=== PATIENT | male | born 1950 | race Caucasian/White ===

== ENCOUNTER 2016-10-09 13:52 | Outpatient (CLI) | payer MEDICARE, OTHER | END 2016-10-09 13:53 | disposition home or self-care (01) | DX: R53.83 Other fatigue (principal); R10.9 Unspecified abdominal pain ==

== ENCOUNTER 2017-09-01 08:21 | Outpatient (CLI) | payer MEDICARE, OTHER ==
--- NOTE | 2017-09-01 10:55 | Ultrasound Report ---
SCROTAL ULTRASOUND: 09/01/2017 CLINICAL HISTORY: Pain right testicle. TECHNIQUE: Real-time sonographic vascular imaging was performed by the superintendent meter tests through the scrotu m utilizing both color-flow and Doppler spectral analysis. Multiple insurance verification representative static images wer e saved for review. COMPARISON: None. FINDINGS: RIGHT TESTICLE: 4.2 x 2.2 x 3.5 cm, normal echotexture and blood flow. No hydrocele or varicocele. RIGHT EPIDIDYMIS: 1.2 x 0.7 x 1.6 cm, normal echotexture and blood flow. Right epididymal head cyst o f 4 x 3 x 3 mm. LEFT TESTICLE: 4.1 x 2 x 2.9 cm, normal echotexture and blood flow. No hydrocele or varicocele. LEFT EPIDIDYMIS: 0.9 x 0.8 x 1 cm, normal echotexture and blood flow. Left epididymal head cyst of 8 x 6 x 5 mm. HERNIA: None seen on either side. IMPRESSION: BILATERAL SIMPLE EPIDIDYMAL HEAD CYSTS. OTHERWISE, NEGATIVE SCROTAL ULTRASOUND. JOB #: [id number] EXT JOB #:[id number]
== END 2017-09-01 08:22 | disposition home or self-care (01) ==
LOC: DI 08:21
PROVIDERS: ATTEND Nurse Practitioner Family
DX: N50.3 Cyst of epididymis (principal)
CPT/HCPCS: 76870

== ENCOUNTER 2017-09-11 08:23 | Outpatient (CLI) | payer MEDICARE, OTHER ==
--- NOTE | 2017-09-15 15:11 | Ultrasound Report ---
EXAM: Complete abdominal ultrasound 09/11/2017. CLINICAL INDICATION: Right-sided pain. TECHNIQUE: Real time scanning was performed, with home office representative static images obtained. FINDINGS: The liver measures 12.7 cm. Hepatic echogenicity is increased, compatible with fatty infiltration. No focal parenchymal lesion or intrahepatic biliary dilatation is appreciated. The common bile duct measures 4 mm. The gallbladder is normal. The visualized pancreas is unremarkable. The kidneys are normal, with the right measuring 10.0 cm and the left measuring 10.2 cm. The spleen measures 8.8 cm, and demonstrates normal echotexture. The abdominal aorta is normal in caliber. The inferior vena cava is unremarkable. No free fluid is present. IMPRESSION: Likely fatty infiltration of the liver. No evidence of cholelithiasis or biliary dilatation. No hydronephrosis. TD: 09/11/2017 19:35 MTDD
== END 2017-09-11 08:24 | disposition home or self-care (01) ==
LOC: DI 08:23
PROVIDERS: ATTEND Nurse Practitioner Family
DX: N50.89 Other specified disorders of the male genital organs (principal)
CPT/HCPCS: 76700

== ENCOUNTER 2017-09-25 13:08 | Outpatient (CLI) | payer MEDICARE, OTHER ==
[2017-09-25] MEDS ORDERED: IOPAMIDOL-300 50 ML VIAL ONE (13:13)
[2017-09-25] MEDS ORDERED: IOPAMIDOL-300 100 ML VIAL ONE (13:13)
[2017-09-25] MEDS ORDERED: IOPAMIDOL-300 100 ML VIAL IVP ONE (14:38)
[2017-09-25] MEDS ORDERED: IOPAMIDOL-300 50 ML VIAL PO ONE (14:38)
--- NOTE | 2017-09-26 13:44 | CT Report ---
DATE OF SERVICE: 09/25/2017 CT ABDOMEN AND PELVIS WITH CONTRAST: 09/25/2017 CLINICAL INDICATION: Lower abdominal pain. COMPARISON: Ultrasound 09/11/2017. Axial CT images of the abdomen and pelvis were obtained with 100 mL Isovue 300 intravenously as well as oral contrast. In accordance with CT protocol optimization, one or more of the following dose reduction techniques w ere utilized for this exam: Automated exposure control, adjustment of mA and/or KV based on patient size , or use of iterative reconstructive technique. Limited evaluation of the lung bases is unremarkable. ABDOMEN: The liver, spleen, pancreas, kidneys, and adrenal glands are unremarkable. The gallbladder is not dilated. No bowel dilatation, free gas, or free fluid is present. No abdominal adenopathy is seen. PELVIS: Sigmoid diverticulosis is present, without CT evidence of diverticulitis. There is a small right inguinal hernia present, containing fat, without evidence of bowel herniation. The appendix is seen in the right lower quadrant, and is normal in caliber. Osseous structures demonstrate degenerative changes. IMPRESSION: Small right inguinal hernia, containing fat, without evidence of bowel herniation. Diverticulosis without CT evidence of diverticulitis. TD: 09/25/2017 20:27
== END 2017-09-25 13:09 | disposition home or self-care (01) ==
LOC: DI 13:08
PROVIDERS: ATTEND Registered Nurse
DX: K40.90 Unilateral inguinal hernia, without obstruction or gangrene, not specified as recurrent (principal); K57.30 Diverticulosis of large intestine without perforation or abscess without bleeding
CPT/HCPCS: 74177; Q9967

== ENCOUNTER 2017-11-14 08:45 | Day surgery (SDC) | payer MEDICARE, OTHER ==
[2017-11-14] MEDS ORDERED: ceFAZolin 2 GM/50 ML 2 GM/50 ML BAG IV ONE (09:01)
[2017-11-14] MEDS ORDERED: LACTATED RINGERS 1,000 ML IV ONE ×2 (09:26→10:12)
[2017-11-14] MEDS ORDERED: MIDAZOLAM 2 MG/2 ML VIAL IVP ONE (10:00)
[2017-11-14] MEDS ORDERED: KETAMINE 500 MG/10 ML VIAL IVP ONE (10:00)
[2017-11-14] MEDS ORDERED: LIDOCAINE-MPF 2% 5 ML VIAL IM ONE (10:00)
[2017-11-14] MEDS ORDERED: PROPOFOL 200 MG/20 ML VIAL IVP ONE (10:00)
[2017-11-14] MEDS ORDERED: ONDANSETRON 4 MG/2 ML VIAL IVP ONE (10:00)
[2017-11-14] MEDS ORDERED: fentaNYL 100 MCG/2 ML VIAL IVP ONE (10:00)
[2017-11-14] MEDS ORDERED: BUPIVACAINE 0.25% PF 30 ML VIAL SUBQ ONE ×2 (10:02)
[2017-11-14] MEDS ORDERED: LIDOCAINE 1%-EPI 1:100000 20 ML MDV SUBQ ONE ×2 (10:02)
[2017-11-14] MEDS ORDERED: ACETAMINOPHEN 1,000 MG/100 ML 100 ML IV ONE (11:16)
--- NOTE | 2017-11-14 11:35 | ONCOLOGY / HEMATOLOGY ---
DATE OF SERVICE: 11/14/2017 Physician: John De Jesus MD PREOPERATIVE DIAGNOSIS: Right inguinal hernia. POSTOPERATIVE DIAGNOSIS: Right inguinal hernia. NAME OF PROCEDURE: Right long inguinal hernia repair. SURGEON: John De Jesus MD ANESTHESIA: MAC. INDICATIONS FOR PROCEDURE: The patient is a 67-year-old male who presents with pain in the right groin. On physical exam, he had a reducible right inguinal hernia. FINDINGS AT SURGERY: The patient had moderate sized indirect right inguinal hernia being present. It was repaired with ProGrip mesh. PROCEDURE: After informed consent was obtained, the patient was taken to the operating room, placed in supine position. MAC anesthesia was administered. The patient's right groin was then prepped and draped in the usual sterile fashion. The skin overlying the inguinal canal was then injected with local anesthesia. A transverse incision was made in the skin and carried down to the fascial layer using electrocautery. The external oblique fascial layer was then incised, opening up the inguinal canal. [place] drain was then placed around the cord structures at the pubic tubercle. The ilioinguinal and iliohypogastric nerves were identified and preserved. The patient did not have any significant weakness in the floor of his inguinal canal. The cremasteric muscles were then split and an indirect inguinal hernia sac moderate in size was then identified. It was then dissected free from the cord structures. A pursestring suture was then placed around the base with the tip of the sac then being inverted. The suture was then tied with the sac staying intra-abdominally. Next, the ProGrip mesh was then placed into the inguinal canal and wrapped around the cord structures, creating a new internal inguinal ring without any constriction on the cord structures. The mesh covered the pubic tubercle well. The mesh was then secured to the tissue over the pubic bone using 3-0 Vicryl suture. With the mesh in good position, the external oblique fascial layer was then closed using running #3-0 Vicryl sutures. Subcutaneous tissue was closed using 3-0 Vicryl suture. Skin incision was closed using 4-0 Monocryl subcuticular stitch. Dermabond was then applied. The patient was then awakened and taken from the procedure room in stable condition. ESTIMATED BLOOD LOSS: Less than 5 mL COMPLICATIONS: None. CONDITION OF THE PATIENT AT THEN END OF THE PROCEDURE: Stable. SPECIMENS: None. DRAINS AND PACKS: None. CLASSIFICATION OF WOUND: Clean. TD: 11/14/2017 11:34
[2017-11-14] MEDS ORDERED: HYDROcod/ACETAM 5/325 MG TABLET ONE (12:03)
[2017-11-14 12:07] VITALS: BP 160/84
== END 2017-11-14 08:46 | disposition home or self-care (01) ==
LOC: SDS 08:45
PROVIDERS: ATTEND Surgery
PROC: 0YU50JZ Supplement Right Inguinal Region with Synthetic Substitute, Open Approach (ICD-10-PCS; principal; 2017-11-14 10:00)
DX: K40.90 Unilateral inguinal hernia, without obstruction or gangrene, not specified as recurrent (principal)
CPT/HCPCS: 49505; A9270; C1781; J0131; J0690; J7120

== ENCOUNTER 2019-09-17 13:01 | Outpatient (CLI) | payer MEDICARE, OTHER ==
--- NOTE | 2019-09-18 09:36 | XRAY Report ---
Reason: PAIN IN LT KNEE Procedure Date: 09/17/2019 Accession Number: [id number] / [id number] Procedure: XRS - Knee 3 View LT CPT Code: Final Report FULL RESULT: EXAM: LEFT KNEE RADIOGRAPHY EXAM DATE: 09/17/2019 01:13 PM HISTORY: PAIN IN LT KNEE COMPARISON: None TECHNIQUE: AP, lateral and Merchant, 3 views including weightbearing FINDINGS: No fracture, lytic or sclerotic bone lesion. No arthritis. No joint effusion. Normal soft tissues. IMPRESSION: Normal knee radiography. RADIA
== END 2019-09-17 13:02 | disposition home or self-care (01) ==
LOC: DI.S 13:01
PROVIDERS: ATTEND Registered Nurse
DX: M25.562 Pain in left knee (principal)

== ENCOUNTER 2019-12-16 10:09 | Outpatient (CLI) | payer MEDICARE, OTHER ==
--- NOTE | 2019-12-16 12:13 | MRI Report ---
Reason: RESTING TREMOR, PARKINSONISM Procedure Date: 12/16/2019 Accession Number: [id number] / [id number] Procedure: MRI - Brain W/O CPT Code: Final Report FULL RESULT: EXAM: MRI BRAIN WITHOUT CONTRAST EXAM DATE: 12/16/2019 11:21 AM. CLINICAL HISTORY: 69-year-old man with resting tremor and parkinsonism. COMPARISON: None. TECHNIQUE: Multiplanar, multisequence T1-weighted and fluid-sensitive MR sequences of the brain were performed. Sequences optimized for routine evaluation. Other: None. IV Contrast: None. FINDINGS: Parenchyma: No evidence of acute infarct on diffusion weighted sequence. Parenchyma demonstrates moderate burden of nonspecific FLAIR hyperintensities in the deep cerebral and periventricular white matter, most consistent with sequelae of chronic small vessel ischemic disease and a common finding in this age group. Basal ganglia are normal in appearance. No evidence of prior hemorrhage on susceptibility weighted sequence. Pituitary: Unremarkable. Ventricles and Extra-axial Spaces: The ventricles are symmetric but moderately enlarged, most consistent with central cerebral volume loss at the upper limits of normal for age. Extra-axial spaces are unremarkable. Orbits: Unremarkable. Sinuses: Scattered mucosal thickening is present in the paranasal sinuses, greatest in the ethmoid sinuses bilaterally. Mastoid air cells are clear. Major Vascular Flow Voids: Intact. IMPRESSION: 1. No acute intracranial abnormality. Specifically, no evidence of acute infarct, hemorrhage, or mass lesion. 2. Moderate white matter changes, most consistent with sequelae of chronic small vessel ischemic disease and a common finding in this age group. RADIA
== END 2019-12-16 10:10 | disposition home or self-care (01) ==
LOC: DI 10:09
PROVIDERS: ATTEND Psychiatry & Neurology Neurology
DX: G20 Parkinson's disease (principal)
CPT/HCPCS: 70551

== ENCOUNTER 2020-01-01 10:46 | Outpatient (CLI) | payer MEDICARE, OTHER ==
[2020-01-01 11:12] LABS: CREATININE 0.9 mg/dL (0.6-1.2)
[2020-01-01] MEDS ORDERED: IOVERSOL 320 100 ML VIAL IVP ONE ×2 (11:34→13:04)
[2020-01-01] MEDS ORDERED: IOVERSOL 320 50 ML VIAL ONE (11:34)
[2020-01-01] MEDS ORDERED: IOVERSOL 320 50 ML VIAL PO ONE (13:04)
--- NOTE | 2020-01-01 16:10 | CT Report ---
Reason: LLQ PAIN Procedure Date: 01/01/2020 Accession Number: [id number] / [id number] Procedure: CT - Abdomen/Pelvis W CPT Code: Final Report FULL RESULT: EXAM: CT ABDOMEN AND PELVIS EXAM DATE: 01/01/2020 12:57 PM. CLINICAL HISTORY: Left lower quadrant pain. COMPARISONS: 09/17/2017 CT abdomen and pelvis. TECHNIQUE: Routine helical CT imaging was performed through the abdomen and pelvis. IV contrast: 100 mL Optiray 320. Enteric contrast: Yes. Reconstructions: Coronal and sagittal. In accordance with CT protocol optimization, one or more of the following dose reduction techniques were utilized for this exam: automated exposure control, adjustment of mA and/or KV based on patient size, or use of iterative reconstructive technique. FINDINGS: Lung Bases: Unremarkable. Liver: Normal. No masses. Gallbladder/Bile Ducts: Unremarkable. Spleen: Normal. Pancreas: Fatty infiltration of the pancreas. No masses or cysts. No pancreatic ductal dilatation. Adrenal Glands: Normal. Kidneys: Normal. No masses or hydronephrosis. Peritoneal Cavity/Bowel: Sigmoid diverticulosis. No pericolonic inflammatory changes. A loop of the proximal sigmoid colon extends into a left inguinal hernia. Moderate amount of stool within the colon. No evidence of obstruction or strangulation. Asymmetric wall thickening of the mid sigmoid (Series 5 image 23 and series 3 image 63 through 67). Small bowel is normal in caliber and wall thickness. The appendix is well visualized and normal. Pelvic Organs: Normal. The bladder and visualized pelvic organs are within normal limits. Vasculature: No aneurysms or other significant abnormality. Bones: No significant abnormality. Other: None. IMPRESSION: 1. Sigmoid diverticulosis without evidence of acute diverticulitis. 2. Left inguinal hernia contains a loop of sigmoid colon. No adjacent inflammatory changes or wall thickening to suggest regulation. No upstream colonic or small bowel dilatation to suggest obstruction. 3. Possible asymmetric wall thickening within the mid to distal sigmoid colon. Correlation with colonoscopy is recommended on a nonemergent basis to exclude neoplasia. RADIA
== END 2020-01-01 10:47 | disposition home or self-care (01) ==
LOC: LAB 10:46
PROVIDERS: ATTEND Registered Nurse
DX: K57.30 Diverticulosis of large intestine without perforation or abscess without bleeding (principal); K40.90 Unilateral inguinal hernia, without obstruction or gangrene, not specified as recurrent; R10.32 Left lower quadrant pain
CPT/HCPCS: 36415; 74177; 82565; Q9967

== ENCOUNTER 2020-03-14 15:57 | Outpatient (CLI) | payer MEDICARE, OTHER ==
[2020-03-14] MEDS ORDERED: IOVERSOL 320 100 ML VIAL IVP ONE ×2 (16:07→17:14)
[2020-03-14 16:45] LABS: CREATININE 0.8 mg/dL (0.6-1.2)
--- NOTE | 2020-03-14 17:44 | CT Report ---
PROCEDURE: CHEST W INDICATIONS: COLON CANCER CONTRAST: IV CONTRAST: Optiray 320 ml: 100 PO CONTRAST: *NO PO CONTRAST TECHNIQUE: After the administration of intravenous contrast, 5 mm thick sections acquired from the pulmonary api marquis to the posterior costophrenic angles. 7 mm thick coronal MIP reformats were acquired. For radia tion dose reduction, the following was used: automated exposure control, adjustment of mA and/or kV according to patient size. COMPARISON: CT abdomen pelvis 01/01/2020 FINDINGS: Image quality: Excellent. Lungs and pleura: No acute air space opacities. No pleural effusions or pneumothorax. Central and peripheral airways are patent and normal in caliber. Mediastinum: Heart size is normal. No pericardial effusion. No mediastinal or hilar adenopathy by size criteria. Thoracic aorta and central pulmonary arteries are normal in size. Esophagus is ying l in caliber. No hiatal hernia. Bones and chest wall: No suspicious bony lesions. No vertebral body compression fractures. No axil byron or supraclavicular adenopathy by size criteria. Thyroid gland is unremarkable. Abdomen: Partially visualized enlarged periaortic lymph node nodes. Otherwise, visualized upper abdom inal solid organs appear normal. Upper abdominal bowel loops are normal in caliber. IMPRESSION: 1. No evidence of pulmonary metastatic disease. 2. Partially visualized periaortic adenopathy. Reviewed by: Irena Amaya MD on 03/14/2020 5:43 PM PDT Approved by: Irena Amaya MD on 03/14/2020 5:43 PM PDT Station ID: [id number]
== END 2020-03-14 15:58 | disposition home or self-care (01) ==
LOC: LAB 15:57
PROVIDERS: ATTEND Internal Medicine Gastroenterology
DX: R59.0 Localized enlarged lymph nodes (principal); C18.7 Malignant neoplasm of sigmoid colon
CPT/HCPCS: 36415; 71260; 82565; 84520; Q9967

== ENCOUNTER 2020-06-09 16:46 | Outpatient (CLI) | payer MEDICARE, OTHER ==
[2020-06-09] MEDS ORDERED: GADOBUTROL 10 MMOL/10 ML VIAL ONE (18:23)
[2020-06-09] MEDS ORDERED: GADOBUTROL 10 MMOL/10 ML VIAL IVP ONE (18:27)
--- NOTE | 2020-06-12 11:57 | MRI Report ---
PROCEDURE: Brain W/WO INDICATIONS: MALIGNANT NEOPLASM OF COLON CONTRAST: IV CONTRAST: Gadavist ml: 8 TECHNIQUE: Noncontrast axial T1 spin echo, axial T2 fast spin echo, sagittal and axial FLAIR, coronal T2 fast sp in echo, axial gradient echo, axial diffusion and ADC through the brain. After the administration of contrast, axial and coronal T1 spin echo with fat saturation through the brain. COMPARISON: MRI examination dated 12.16.19. FINDINGS: Image quality: Excellent. CSF spaces: Basal cisterns are patent. No extra-axial fluid collections. Ventricles are normal in size and shape. Brain: No midline shift. No intracranial bleeds or masses. No abnormal intracranial enhancement. There is cerebral volume loss for age. There is periventricular white matter chronic small vessel is chemic change. The brainstem appears normal. Diffusion-weighted images demonstrate no acute ischemi c insults. No chronic ischemic insults. Normal intravascular flow voids are present. Skull and face: Calvarial marrow is normal in signal. Orbits appear normal. Sinuses: Sinuses and mastoids appear clear. IMPRESSION: 1. Volume loss and small vessel ischemic disease. 2. No acute process. No recent infarct. 3. No evidence of metastatic disease. Reviewed by: Edwin Rodriguez MD on 06/12/2020 11:56 AM PDT Approved by: Edwin Rodriguez MD on 06/12/2020 11:56 AM PDT Station ID: [id number]
== END 2020-06-09 16:47 | disposition home or self-care (01) ==
LOC: DI 16:46
PROVIDERS: ATTEND Psychiatry & Neurology Neurology
DX: C18.9 Malignant neoplasm of colon, unspecified (principal); R41.3 Other amnesia; Z13.89 Encounter for screening for other disorder
CPT/HCPCS: 70553; A9585

== ENCOUNTER 2020-12-14 14:26 | Outpatient (CLI) | payer MEDICARE, OTHER | END 2020-12-14 14:27 | disposition home or self-care (01) | LOC: COV 14:26 | PROVIDERS: ATTEND Surgery | DX: Z01.812 Encounter for preprocedural laboratory examination (principal); K40.90 Unilateral inguinal hernia, without obstruction or gangrene, not specified as recurrent; Z20.822 Contact with and (suspected) exposure to COVID-19 ==

== ENCOUNTER 2020-12-18 08:57 | Day surgery (SDC) | payer MEDICARE, OTHER ==
[~2020-12-18 08:57] MED LIST: ceFAZolin 2 GM/50 ML 2 GM/50 ML BAG IV ONE
--- NOTE | 2020-12-18 09:36 | ANESTHESIA ---
Pre-Anesthesia VS, & Labs - Diagnosis left inguinal hernia - Procedure left Inguinal hernia repair, port removal Vital Signs: Temp Pulse Resp BP Pulse Ox 36.3 C L 90 20 139/84 H 99 12/18/20 09:22 12/18/20 09:22 12/18/20 09:22 12/18/20 09:22 12/18/20 09:22 Height: 5 ft 7 in Weight (kg): 70.7 kg Body Mass Index: 24.4 BMI Classification: Healthy weight - NPO >8 hours - Lab Results Lab results reviewed: Yes Home Medications and Allergies Latanoprost 0.005% Ophth Drops [Xalatan Ophth Drops] 1 drops OPTH QPM 11/04/17 Carbidopa/Levodopa 10/100 [Sinemet 10 mg/100 mg] 2 tab PO TID 04/19/20 Allergies/Adverse Reactions: Allergies Allergy/AdvReac Type Severity Reaction Status Date / Time prednisone Allergy Severe Anaphylaxis Verified 10/04/20 15:50 Anes History & Medical History - Anesthetic History Anesthesia Complications: reports: No previous complications Family history of Anesthesia Complications: Denies Family history of Malignant Hyperthermia: Denies - Medical History Cardiovascular: Pulmonary: reports: Shortness of breath Gastrointestinal: reports: GERD Urinary: reports: None Neuro: reports: Parkinson's Musculoskeletal: reports: None Endocrine/Autoimmune: reports: None Skin: reports: None Smoking Status: Never smoker - Surgical History General: reports: Bowel surgery Exam General: Alert, Oriented x3, Cooperative, No acute distress Dental: WNL Mouth Openin Fingerbreadth Neck Mobility: Normal Mallampati classification: II Respiratory: Lungs clear, Normal breath sounds, No respiratory distress, No accessory muscle use Cardiovascular: Regular rate, Normal S1, Normal S2, No murmurs Plan Anesthesia Type: General, MAC, Total IV Consent for Procedure(s) Verified and Reviewed: Yes Code Status: Attempt Resuscitation ASA classification: 3-Severe systemic disease Is this case an emergency?: No
[2020-12-18] MEDS ORDERED: ePHEDrine 50 MG/ML VIAL IVP PRN (09:44)
[2020-12-18] MEDS ORDERED: MORPHINE 2 MG/ML CARPUJECT IVP PRN (09:44)
[2020-12-18] MEDS ORDERED: NALOXONE 0.4 MG/ML VIAL IVP PRN (09:44)
[2020-12-18] MEDS ORDERED: METOCLOPRAMIDE 10 MG/2 ML VIAL IVP PRN (09:44)
[2020-12-18] MEDS ORDERED: fentaNYL 100 MCG/2 ML VIAL IVP PRN (09:44)
[2020-12-18] MEDS ORDERED: LACTATED RINGERS 1,000 ML IV ONE ×2 (09:44→11:19)
[2020-12-18] MEDS ORDERED: ONDANSETRON 4 MG/2 ML VIAL IVP PRN ×2 (09:44→11:18)
[2020-12-18] MEDS ORDERED: ATROPINE ABBOJECT 1 MG/10 ML SYRINGE IVP PRN (09:44)
[2020-12-18] MEDS ORDERED: HYDROmorphone 0.5 MG/0.5 ML SYRINGE IVP PRN (09:44)
[2020-12-18] MEDS ORDERED: LACTATED RINGERS 1,000 ML IV SCH (10:00)
[2020-12-18] MEDS ORDERED: LIDOCAINE 2%-EPI 1:100000 20 ML MDV ONE (10:04)
[2020-12-18] MEDS ORDERED: ceFAZolin 1 GM VIAL ONE (10:04)
[2020-12-18] MEDS ORDERED: BUPIVACAINE 0.5% PF 30 ML VIAL ONE (10:05)
[2020-12-18] MEDS ORDERED: LIDOCAINE-MPF 2% 5 ML VIAL ONE (10:17)
[2020-12-18] MEDS ORDERED: fentaNYL 100 MCG/2 ML VIAL ONE (10:17)
[2020-12-18] MEDS ORDERED: ONDANSETRON 4 MG/2 ML VIAL ONE (10:17)
[2020-12-18] MEDS ORDERED: DEXAMETHASONE 4 MG/ML VIAL ONE (10:17)
[2020-12-18] MEDS ORDERED: LIDOCAINE 2%-EPI 1:100000 20 ML MDV SUBQ ONE (10:36)
[2020-12-18] MEDS ORDERED: BUPIVACAINE 0.5% PF 30 ML VIAL INFIL ONE (10:36)
[2020-12-18] MEDS ORDERED: ceFAZolin 1 GM VIAL IR ONE (10:55)
[2020-12-18] MEDS ORDERED: ePHEDrine 50 MG/ML VIAL IVP ONE (11:08)
--- NOTE | 2020-12-18 11:15 | OPERATIVE REPORT ---
Operative Report - General Procedure Date: 12/18/20 Planned Procedure: Left inguinal hernia repair, Right subclavian port removal Pre-Op Diagnosis: Large and symptomatic left inguinal hernia, Chemotherapy completed Procedure Performed: Left inguinal hernia repair, Right subclavian port removal Post Op Diagnosis: Large and symptomatic left inguinal hernia, Chemotherapy completed - Procedure Note Primary Surgeon: Gabi Anesthesia Provider: CANDY Soliz Anesthesia Technique: General LMA, Local Pathology: None Estimated Blood Loss (mL): 15 Findings: Large indirect left inguinal hernia Subclavian port in good repair Complications: None apparent - Other Other Information/Narrative: After obtaining informed consent, the patient is brought to the operating room and placed in the supine position on the operating table. Following successful induction of general endotracheal anesthesia, appropriate padding of all bony prominences, and placement of appropriate monitors, the abdomen was prepped and draped in the standard surgical fashion. A timeout was held per scope protocol. All elements of the surgical safety checklist were followed before, during, and after the procedure. We began the procedure by infiltrating a mixture of local anesthetics medial to the anterior superior iliac spine on the left. This was done to create an ileal inguinal nerve block. We then selected a site for an incision in the left lower quadrant just superior and lateral to the pubic tubercle. This area was anesthetized with additional local anesthetic and an incision was created here.The incision was carried down through the skin and subcutaneous tissue to reveal the fascia of the external oblique aponeurosis. Retractor was placed and the aponeurosis was opened in direction of its fibers. The ilioinguinal nerve was immediately identified. We continued by identifying the spermatic cord and gently encircling it with a [place] drain. The hernia sac was carefully dissected free from the cord structures and was noted to be in the inferior medial position. The sac was in the indirect position. We carefully dissected the spermatic cord from the sac. The hernia sac was then placed back into the abdominal cavity. We elected to repair the hernia with a large Prolene hernia system mesh implant. This was dipped in Ancef containing solution and then deployed into the defect. The posterior leaflet was straightened and flattened in the preperitoneal space. The anterior leaflet was then nicked medially to provide a place for the spermatic cord and then closed with a Vicryl suture. The more inferior aspect was then sewn to Juan David's ligament medially. Laterally it was tucked under the external beak aponeurosis. The wound was checked for hemostasis and irrigated with warm saline solution. It was aspirated free of all fluid and particulate matter. The extra oblique aponeurosis was then closed with a running locking Vicryl suture Melquiades's fascia was closed with Vicryl suture and Monocryl stitches were placed in the skin. We now turned our attention to the right subclavian port. A mixture of local anesthetics was infiltrated in the tissue in and around the port site. The existing incision was repeated and carried through the skin to reveal the port below. The port was carefully dissected free from the subcutaneous tissue and chest wall sharply. It was delivered into the field and then gently removed to include the tubing. The entire device and tubing was removed in a single use. The wound was checked for hemostasis. It was closed in 2 layers with Vicryl and Monocryl sutures. All sponge, needle, and instrument counts were correct at the conclusion of the case. The patient was allowed awaken from anesthesia without difficulty and taken to the postanesthesia care unit in good condition.
[2020-12-18] MEDS ORDERED: IBUPROFEN 600 MG TABLET PO PRN (11:18)
[2020-12-18] MEDS ORDERED: oxyCODONE 5 MG TABLET PO PRN (11:18)
[2020-12-18] MEDS ORDERED: ACETAMINOPHEN 325 MG TABLET PO PRN (11:18)
--- NOTE | 2020-12-18 12:03 | ANESTHESIA POST OP EVALUATION ---
Anesthesia Post Eval - Post Anesthesia Eval Vitals: Last Vital Signs Temp 36.7 C 12/18/20 11:53 Pulse 94 12/18/20 11:53 Resp 16 12/18/20 11:53 BP 125/78 12/18/20 11:53 Pulse Ox 99 12/18/20 11:53 CV Function Including HR & BP: positive: Stable Pain Control: positive: Satisfactory Nausea & Vomiting: positive: Negative Mental Status: positive: Patient Participates Respiratory Status: Airway Patent Hydration Status: Satisfactory Anesthesia Complications: positive: None
[2020-12-18] MEDS ORDERED: IBUPROFEN 600 MG TABLET PO ONE (12:29)
[2020-12-18] MEDS ORDERED: ACETAMINOPHEN 325 MG TABLET PO ONE (12:29)
[2020-12-18 14:16] VITALS: BP 120/77
== END 2020-12-18 08:58 | disposition home or self-care (01) ==
LOC: SDS 08:57
PROVIDERS: ATTEND Surgery
DX: K40.90 Unilateral inguinal hernia, without obstruction or gangrene, not specified as recurrent (principal); Z45.2 Encounter for adjustment and management of vascular access device; C18.9 Malignant neoplasm of colon, unspecified; Z92.21 Personal history of antineoplastic chemotherapy
CPT/HCPCS: 36590; 49505; A9270; C1781; J0690; J7120

== ENCOUNTER 2021-01-31 12:10 | Outpatient (CLI) | payer MEDICARE, OTHER | END 2021-01-31 12:11 | disposition home or self-care (01) | LOC: LAB 12:10 | PROVIDERS: ATTEND Surgery | DX: Z53.9 Procedure and treatment not carried out, unspecified reason (principal); K40.90 Unilateral inguinal hernia, without obstruction or gangrene, not specified as recurrent; C18.9 Malignant neoplasm of colon, unspecified ==

== ENCOUNTER 2021-05-26 12:36 | Outpatient (CLI) | payer MEDICARE, OTHER | END 2021-05-26 23:59 | disposition EMS.NT | LOC: EMS 12:36 | DX: R42 Dizziness and giddiness (principal) ==

== ENCOUNTER 2021-05-26 13:46 | Emergency (ER) | payer MEDICARE, OTHER ==
[2021-05-26 14:02] VITALS: BP 148/80
--- NOTE | 2021-05-26 15:52 | ED Physician Documentation ---
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 For the last 4 days he has had intermittent spinning sensation. It started 1 night while getting out of bed to urinate. Since then he notices especially with position changes or transitioning from sitting to standing. It is much better with the right ear down. He is not dizzy on initial evaluation. No history of vertigo in the past. No headache. He has some generalized weakness but no focal neurologic symptoms. Review of Systems Constitutional: denies: Fever, Chills Ears: reports: Reviewed and negative Nose: reports: Reviewed and negative Throat: reports: Reviewed and negative Cardiac: reports: Reviewed and negative Respiratory: reports: Reviewed and negative PD PAST MEDICAL HISTORY - Past Medical History Cardiovascular: High cholesterol Respiratory: Shortness of breath, Other Neuro: Parkinson's Endocrine/Autoimmune: None GI: GERD : None HEENT: Other Psych: None Musculoskeletal: None Derm: None - Past Surgical History General: Other - Present Medications Home Medications: Ambulatory Orders Medication Instructions Recorded Confirmed Latanoprost 0.005% Ophth Drops 1 drops OPTH QPM 11/04/17 05/02/21 [Xalatan Ophth Drops] Carbidopa/Levodopa 10/100 [Sinemet 2 tab PO TID 04/19/20 05/02/21 10 mg/100 mg] ondansetron HCL [Zofran] 8 mg PO BID PRN #30 tablet 04/24/20 05/02/21 Ondansetron Odt [Zofran Odt] 4 mg TL Q6H PRN #10 tablet 12/18/20 05/02/21 traMADol [Ultram] 50 mg PO Q4H PRN #20 tablet 12/18/20 05/02/21 - Allergies Allergies/Adverse Reactions: Allergies Allergy/AdvReac Type Severity Reaction Status Date / Time prednisone Allergy Severe Anaphylaxis Verified 05/26/21 14:02 - Social History Smoking Status: Never smoker PD ED PE NORMAL - Vitals Vital signs reviewed: Yes - General General: Alert and oriented X 3, No acute distress - HEENT HEENT: PERRL, EOMI, Pharynx benign, Other (Tms appear normal, he does have c ataracts. 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 An Corin maneuver was done starting with the left ear down. After the Corin maneuver, he was still slightly symptomatic but it helped significantly. He declined medications. Departure - Departure Disposition: 01 Home, Self Care Clinical Impression: BPPV (benign paroxysmal positional vertigo) Qualifiers: Laterality: left Qualified Code(s): H81.12 - Benign paroxysmal vertigo, left ear Condition: Good Record reviewed to determine appropriate education?: Yes Instructions: Vertigo Paroxysmal Positional Comments: When you are symptomatic, continue to do the Corin maneuver. Since it helped you here I am convinced that we will continue to help and at some point we will have no vertigo left. Follow-up with your physician. Return for new or worsening symptoms.
== END 2021-05-26 16:03 | disposition home or self-care (01) ==
LOC: ED 13:46
DX: H81.12 Benign paroxysmal vertigo, left ear (principal); G20 Parkinson's disease
CPT/HCPCS: 99281; 99282

== ENCOUNTER 2021-08-18 03:26 | Outpatient (CLI) | payer MEDICARE, OTHER | END 2021-08-18 03:27 | disposition critical access hospital (66) | LOC: EMS 03:26 | DX: R61 Generalized hyperhidrosis (principal); R45.1 Restlessness and agitation; R11.0 Nausea | CPT/HCPCS: A0425; A0427 ==

== ENCOUNTER 2021-08-18 03:49 | Emergency (ER) | payer MEDICARE, OTHER ==
[2021-08-18] MEDS ORDERED: ACETAMINOPHEN 325 MG TABLET PO STA (03:58)
--- NOTE | 2021-08-18 04:01 | ED Physician Documentation ---
History of Present Illness - Stated complaint Stated Complaint: BACK PAIN/AGGITATION - History obtained from History obtained from: Patient, EMS - Additonal information Additional information: 71yM with pmh parkinsons and colon cancer p/w agitation and diaphoresis around 1:30am this morning. called ems and told them he had some home grown marijuana tonight. patient developed nausea since 1am that worsened en route to ED. patient is calm in the ED, AOX2 (person, place) but thinks it's 1969. He did know it is July. denies cp, soa, vomiting, fever, diarrhea, abd pain. does endorse midline thoracic back pain, sudden onset, sharp, worse with deep breathing. denies injury or prior back issues. Review of Systems Ten Systems: 10 systems reviewed and negative Constitutional: denies: Fever, Chills Cardiac: denies: Chest pain / pressure Respiratory: reports: Dyspnea PD PAST MEDICAL HISTORY - Past Medical History Cardiovascular: None Respiratory: Shortness of breath, Other Neuro: Parkinson's Endocrine/Autoimmune: None GI: Other : None HEENT: Chronic vision loss, Glaucoma Psych: None Musculoskeletal: Osteoarthritis Derm: None - Past Surgical History General: Other - Present Medications Home Medications: Ambulatory Orders Medication Instructions Recorded Confirmed Latanoprost 0.005% Ophth Drops 1 drops LEFTEYE QPM 11/04/17 07/24/21 [Xalatan Ophth Drops] Ascorbic Acid [Vitamin C] 1,000 mg PO DAILY 07/24/21 07/24/21 Carbidopa/Levodopa 25/100 [Sinemet 2 tab PO TID 07/24/21 07/24/21 25 mg/100 mg] Cholecalciferol [Vitamin D3] 50 mcg PO DAILY 07/24/21 07/24/21 Multivitamin 1 each PO DAILY 07/24/21 07/24/21 Vitamin E 1,000 unit PO DAILY 07/24/21 07/24/21 Zinc Gluconate [Zinc] 50 mg PO DAILY 07/24/21 07/24/21 Calcitonin [Fortical] 1 sprays MAXIMO DAILY 30 Days #1 08/18/21 bottle Naproxen 500 mg PO BID 15 Days #30 tab 08/18/21 - Allergies Allergies/Adverse Reactions: Allergies Allergy/AdvReac Type Severity Reaction Status Date / Time prednisone Allergy Severe Anaphylaxis Verified 08/18/21 04:11 - Social History Smoking Status: Never smoker PD ED PE NORMAL - Vitals Vital signs reviewed: Yes - General General: No acute distress, Well developed/nourished, Other (AOX2) - HEENT HEENT: Atraumatic, PERRL, EOMI - Neck Neck: Supple, no meningeal sign - Cardiac Cardiac: RRR - Respiratory Respiratory: No respiratory distress, Clear bilaterally - Abdomen Abdomen: Non tender, Non distended - Back Back: Other (midthoracic spine ttp) - Derm Derm: Normal color, Warm and dry - Extremities Extremities: No deformity - Neuro Neuro: No motor deficit, No sensory deficit - Psych Psych: Normal mood, Normal affect Results - Vitals Vitals: Vital Signs - 24 hr 08/18/21 08/18/21 08/18/21 03:57 03:58 06:04 Temperature 36.6 C 36.6 C Heart Rate 115 H 115 H 101 H Respiratory 16 16 24 Rate Blood Pressure 136/75 H 136/78 H 156/86 H O2 Saturation 93 94 94 08/18/21 08/18/21 07:39 09:17 Temperature 36.8 C 36.5 C Heart Rate 99 97 Respiratory 18 18 Rate Blood Pressure 150/86 H 142/79 H O2 Saturation 96 96 Oxygen O2 Source Room air - EKG (time done) 0436 Rate: Rate (enter#) (113) Rhythm: Sinus tachycardia Intervals: Normal [place] QRS: Normal (102) Ischemia: Other (no ischemic changes) - Labs Labs: Laboratory Tests 08/18/21 08/18/21 06:18 06:18 WBC 15.2 H RBC 4.42 L Hgb 13.2 L Hct 39.1 L MCV 88.5 MCH 29.9 MCHC 33.8 RDW 15.1 H Plt Count 174 MPV 9.0 Neut # (Auto) 12.9 H Lymph # (Auto) 0.7 L Gage # (Auto) 1.3 H Eos # (Auto) 0.0 Baso # (Auto) 0.0 Absolute Nucleated RBC 0.00 Nucleated RBC % 0.0 Sodium 136 Potassium 4.1 Chloride 99 L Carbon Dioxide 27 Anion Gap 10.0 BUN 24 H Creatinine 0.8 Estimated GFR (MDRD) 95 Glucose 128 H Calcium 9.1 Total Bilirubin 0.7 AST 34 ALT 11 Alkaline Phosphatase 47 Total Protein 7.3 Albumin 4.4 Globulin 2.9 Albumin/Globulin Ratio 1.5 Lipase 28 PD MEDICAL DECISION MAKING - ED course ED course: Collateral information obtained from who called EMS. She states that he woke her from sleep complaining of midline thoracic back pain sudden in onset and she states that he was "breathing funny" and agitated. She states that he was acting normal yesterday and did have marijuana and last night. No known injury however he did lift a heavy object and felt a twinge in his left chest a couple days ago. He has since recovered. patient endorsed to annie Myrick MD for further management and care. Departure - Departure Disposition: Home, Self Care Clinical Impression: Acute thoracic back pain Qualifiers: Back pain laterality: midline Qualified Code(s): M54.6 - Pain in thoracic spine Thoracic compression fracture Qualifiers: Encounter type: initial encounter Thoracic vertebra fracture level: T5 Qualified Code(s): S22.050A - Wedge compression fracture of T5-T6 vertebra, initial encounter for closed fracture Condition: Stable Instructions: ED Fx Comp Vertebral Follow-Up: Jenna Geronimo, CLINICAL LEADER [Primary Care Provider] - Prescriptions: Calcitonin [Fortical] 1 sprays MAXIMO DAILY 30 Days #1 bottle Naproxen 500 mg PO BID 15 Days #30 tab Comments: Your pain appears to be coming from a new compression fracture in the thoracic spine. 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 It does not appear to be impinging on the spinal cord area. Unfortunately, like other bone injuries elsewhere, it will take about a month for it to improve. This will be a gradual improvement with the worst pain in the first week or so. I would suggest regular use of Tylenol 500 mg 4 times a day. Combine with that an anti-inflammatory such as naproxen 500 mg twice a day with food. Calcitonin nasal spray is used to try to increase the rate of bone solidifying so it does not hurt as long. This will be administered as a spray daily in the nostril. That is the route that it absorbs into your system. Contact your primary care or return to the ER if you need stronger medication for pain. You have declined any opiate type medicines at this time. It may be that you need a short course of these over the first week or so to help with the pain. If you do, it can be prescribed by your primary care or back in the ER. We cannot phone it did unfortunately. Also contact your primary care to see if they would consult a commercial sales specialist to see if you are a candidate for vertebroplasty which is a surgical procedure to inject some hardener (glue) into the fracture area through the skin in order to solidify the fracture more promptly. There are criteria for at [place] not sure if you are she would be included and is typically done as an outpatient procedure within the first week or so of the fracture. Discharge Date/Time: 08/18/21 09:56
[2021-08-18] MEDS ORDERED: SODIUM CHLORIDE 0.9% 500 ML IV STA (04:21)
[2021-08-18] MEDS ORDERED: IOVERSOL 320 100 ML VIAL IVP ONE ×2 (04:36→07:13)
[2021-08-18] MEDS ORDERED: MORPHINE 2 MG/ML CARPUJECT IVP STA ×2 (04:42→05:45)
[2021-08-18 06:31] LABS: BASOPHILS % (AUTO) 0.3 %; HCT - HEMATOCRIT 39.1 % (42.0-52.0); HGB - HEMOGLOBIN 13.2 g/dL (14.0-18.0); LYMPHOCYTES # (AUTO) 0.7 10^3/uL (1.5-3.5); LYMPHOCYTES % (AUTO) 4.9 %; MEAN CORPUSCULAR HEMOGLOBIN 29.9 pg (27.0-31.0); MEAN CORPUSCULAR HGB CONC 33.8 g/dL (32.0-36.0); MEAN CORPUSCULAR VOLUME 88.5 fL (80.0-94.0); MONOCYTES # (AUTO) 1.3 10^3/uL (0.0-1.0); MONOCYTES % (AUTO) 8.8 %; NEUTROPHILS # (AUTO) 12.9 10^3/uL (1.5-6.6); PLT - PLATELET COUNT 174 10^3/uL (130-450); RED BLOOD COUNT 4.42 10^6/uL (4.70-6.10); RED CELL DISTRIBUTION WIDTH 15.1 % (12.0-15.0); WHITE BLOOD COUNT 15.2 x10^3/uL (4.8-10.8)
[2021-08-18 06:42] LABS: ALBUMIN 4.4 g/dL (3.2-5.5); ALBUMIN/GLOBULIN RATIO 1.5 (1.0-2.2); BILIRUBIN,TOTAL 0.7 mg/dL (0.2-1.0); CALCIUM 9.1 mg/dL (8.5-10.3); CREATININE 0.8 mg/dL (0.6-1.2); POTASSIUM 4.1 mmol/L (3.5-5.0); TOTAL PROTEIN 7.3 g/dL (6.7-8.2)
--- NOTE | 2021-08-18 08:17 | CT Report ---
PROCEDURE: ANGIO CHEST W/WO INDICATIONS: pleuritic upper back pain, nausea, hx colon cancer CONTRAST: IV CONTRAST: Optiray 320 ml: 80 PO CONTRAST: *NO PO CONTRAST TECHNIQUE: After the administration of intravenous contrast, 2 mm axial images were acquired from the pulmonary apices to the posterior costophrenic angles during the arterial phase. In addition, 1 mm lung kernel and 5 mm soft tissue kernel reconstructions were performed. 3-dimensional coronal oblique maximum int ensity projection (MIP) reformats, 8 mm axial MIP, and 5 mm coronal and sagittal MPR reformats were t hen performed through the thorax. For radiation dose reduction, the following was used: automated exp osure control, adjustment of mA and/or kV according to patient size. COMPARISON: 04/17/2021, 10/25/2020, 07/28/2020 FINDINGS: Image quality: Excellent. Pulmonary arteries: Pulmonary arteries are normal in size, and demonstrate no intraluminal filling d efects to suggest central pulmonary embolism. Lungs and pleura: Within the left upper lobe, there is a focal nodule seen, as on series 6 image 33 t hat measures 6 mm, which has clearly increased in size compared to the prior. Other prior report, a r ight lower lobe nodule described. There is a nodule seen on the current study within the inferior asp ect of the right upper lobe adjacent to the oblique fissure, as on series 6 image 154, which is not s ignificantly changed compared to the prior. No definite new nodules can be seen. Mild bronchial wall thickening can be seen inferiorly. Minimal dependent atelectasis is seen. No pleu ral effusions or pneumothorax. Central and peripheral airways are patent. Mediastinum: Heart size is normal, without pericardial effusion. No mediastinal or hilar adenopathy . Thoracic aorta is normal in caliber and enhancement. Esophagus is normal in caliber, without hiat al hernia. Bones and chest wall: No suspicious bony lesions. No displaced rib fractures are seen. There are fra ctures seen of T3 and T5, with approximately 30% loss of height anteriorly at T3 and approximately 40 % loss of height anteriorly at T4. These fractures are new compared to 04/17/2021. No axillary or supr aclavicular adenopathy. The thyroid is normal in size and there are no incidental findings. Abdomen: Visualized upper abdominal solid organs appear normal in the early arterial phase of enhanc ement. IMPRESSION: No definite pulmonary embolism can be seen. Within the left upper lobe, there is a nodule seen, which has increased in size compared to the prior , now measuring 6 mm. Please consider a 3-6 month follow-up noncontrast chest CT for further evaluati on. There are new compression deformities seen of T3 and T5, which were not present on the prior. Mild bronchial wall thickening can be seen inferiorly. Please consider a viral process. No focal infiltrates are seen, although mild dependent atelectasis can be seen. Note: No significant discrepancy from the preliminary report. Reviewed by: Kelton Maddox MD on 08/18/2021 7:15 AM [facility] Approved by: Kelton Maddox MD on 08/18/2021 7:15 AM [facility] Station ID: [id number]
[2021-08-18] MEDS ORDERED: KETOROLAC 30 MG/ML VIAL IVP STA (08:18)
[2021-08-18] MEDS ORDERED: HYDROmorphone 1 MG/ML CARPUJECT IVP STA (08:18)
--- NOTE | 2021-08-18 08:42 | ED Physician Documentation ---
ED Addendum - Addendum Addendum: 08/18/21 08:37The patient had abrupt pain during the night in the upper to mid thoracic area. He describes the location as "where a woman's bra strap would be". Basic blood tests are normal. The patient had a CT angio of the chest which did not show any vascular problems. There is a small nodule in the left upper lobe that is slightly increased from prior study with a recommendation for 6-month follow-up. There is some bronchial wall thickening with some opacity in the lower lobes bilaterally. However he denies any cough sore throat fevers or chills. The main finding on the CT was apparently new compression fractures at T3 and mainly T5. They were not present on a CT scan . The area of the T5 compression fracture correlates with his area of new pain that is sharp with movement and deep breathing. No apparent trauma right now. He states he did do some heavy lifting 2 days ago with slight soreness in the back. No obvious pathologic deformities noted in the spine. We can treat with anti-inflammatories and Tylenol. We can add calcitonin nasal spray as this has shown some benefit in compression fractures. I told the patient he may need some stronger pain medicines at times. He declined any opiates. I told him to follow-up with his primary care if he needed stronger pain medicines or return to the ER. He should also follow-up with his primary care with consideration of referral or consultation with spine surgery to see if the patient would be a candidate for vertebroplasty. Disposition: The patient is discharged home in stable condition Diagnoses: 1. Acute upper thoracic back pain 2. Acute vertebral compression fracture 3. Incidental nodule in the left upper lobe
[2021-08-18 09:18] VITALS: BP 142/79
== END 2021-08-18 09:56 | disposition home or self-care (01) ==
LOC: EDUNIT# → ED 03:49
DX: M48.54XA Collapsed vertebra, not elsewhere classified, thoracic region, initial encounter for fracture (principal)
CPT/HCPCS: 36415; 71275; 80053; 83690; 85025; 93005; 96374; 96375; 96376; 99284; A9270; J1170; Q9967

== ENCOUNTER 2021-09-17 13:58 | Outpatient (CLI) | payer MEDICARE, OTHER ==
--- NOTE | 2021-09-17 16:49 | DEXA Report ---
PROCEDURE: Dexa Spine and/or Hip INDICATIONS: OSTEOPOROSIS TECHNIQUE: Dual energy x-ray absorptiometry (DXA) was performed on a [employer] System. Regions measur ed are the AP Spine, femoral neck, and if needed forearm. COMPARISON: None. FINDINGS: Lumbar Spine: Bone Mineral Density 0.960 g/cm/cm,T score -2.2. Left Hip: Bone Mineral Density 0.717 g/cm/cm,T score -2.7. Left Femoral Neck: Bone Mineral Density 0.758 g/cm/cm, T score -2.4. (T score greater or equal to -1.0: NORMAL) (T score from -1.1 to -2.4: OSTEOPENIA) (T score less than or equal to -2.5 to: OSTEOPOROSIS) Impression: Osteoporosis Patients with diagnosis of osteoporosis or osteopenia should have regular bone mineral density assess ment. For those eligible for Medicare, routine testing is allowed once every 2 years. Testing frequ ency can be increased for patients who have rapidly progressing disease or for those who are receivin g medical therapy to restore bone mass. Reviewed by: Kumar Weathers MD on 09/17/2021 4:47 PM PST Approved by: Kumar Weathers MD on 09/17/2021 4:47 PM PST Station ID: [id number]
== END 2021-09-17 13:59 | disposition home or self-care (01) ==
LOC: DI 13:58
PROVIDERS: ATTEND Internal Medicine
DX: M81.0 Age-related osteoporosis without current pathological fracture (principal)

== ENCOUNTER 2021-10-03 09:11 | Outpatient (CLI) | payer MEDICARE, OTHER ==
--- NOTE | 2021-10-03 21:15 | Nuclear Medicine Report ---
PROCEDURE: Bone Whole Body INDICATIONS: COLON CA RADIOPHARMACEUTICAL: 24.0 mCi Tc-99m MDP IV. TECHNIQUE: Delayed whole-body scintigrams were obtained approximately 3-4 hours after intravenous injection of r adiotracer. Anterior and posterior views were acquired from vertex to feet. Additional left and rig ht oblique views of the skull were obtained. COMPARISON: CT chest 10/25/2020, 08/31/2021 FINDINGS: Physiologic uptake is noted within the kidneys bladder. There is increased uptake at the l evel of T11 and T6 as well as T4. It is noted on prior exam compression deformities are present at T4 and T6. In addition, there is a focus of increased uptake in the lateral left 11th rib. No abnormali ties identified on CT exam within this region. Mild increased uptake is noted within the knees as wel l as shoulders. IMPRESSION: 1. Increased uptake within the thoracic spine as above with the T4 and T6 areas corresponding to comp ression deformities on recent CT exam. 2. Focal uptake within the lateral left 11th rib without corresponding abnormality on CT. This could represent recent injury or metastatic disease. Rib series is recommended for further evaluation. Reviewed by: Irena Amaya MD on 10/03/2021 9:14 PM PST Approved by: Irena Amaya MD on 10/03/2021 9:14 PM PST Station ID: [id number]
== END 2021-10-03 09:12 | disposition home or self-care (01) ==
LOC: DI 09:11
PROVIDERS: ATTEND Internal Medicine
DX: C18.9 Malignant neoplasm of colon, unspecified (principal); Z79.899 Other long term (current) drug therapy; Z92.21 Personal history of antineoplastic chemotherapy; R93.7 Abnormal findings on diagnostic imaging of other parts of musculoskeletal system
CPT/HCPCS: 78306

== ENCOUNTER 2021-12-03 07:53 | Outpatient (CLI) | payer MEDICARE, OTHER ==
[2021-12-03] MEDS ORDERED: GADOBUTROL 7.5 MMOL/7.5 ML VIAL ONE (08:31)
[2021-12-03] MEDS ORDERED: GADOBUTROL 7.5 MMOL/7.5 ML VIAL IVP ONE (15:52)
--- NOTE | 2021-12-04 09:05 | MRI Report ---
PROCEDURE: Brain W/WO INDICATIONS: TRANSIENT ALTERATION OF AWARENESS, COLON CA CONTRAST: IV CONTRAST: Gadavist ml: 6.8 TECHNIQUE: Noncontrast axial T1 spin echo, axial T2 fast spin echo, sagittal and axial FLAIR, coronal T2 fast sp in echo, axial gradient echo, axial diffusion and ADC through the brain. After the administration of contrast, axial and coronal T1 spin echo with fat saturation through the brain. COMPARISON: 12/16/2019 MRI examination FINDINGS: Image quality: Excellent. CSF spaces: Basal cisterns are patent. No extra-axial fluid collections. Ventricles are normal in size and shape. Brain: No midline shift. No intracranial bleeds or masses. No abnormal intracranial enhancement. There is cerebral volume loss for age. There is periventricular white matter chronic small vessel is chemic change. The brainstem appears normal. Diffusion-weighted images demonstrate no acute ischemi c insults. No chronic ischemic insults. Normal intravascular flow voids are present. Skull and face: Calvarial marrow is normal in signal. Orbits appear normal. Sinuses: Sinuses and mastoids appear clear. IMPRESSION: 1. No evidence of metastatic disease. 2. No acute process. No recent infarct. 3. Mild volume loss and small vessel ischemic disease. Reviewed by: Edwin Rodriguez MD on 12/04/2021 9:04 AM [facility] Approved by: Edwin Rodriguez MD on 12/04/2021 9:04 AM PST Station ID: [id number]
--- NOTE | 2021-12-04 09:10 | MRI Report ---
PROCEDURE: Cervical Spine W/WO INDICATIONS: TRANSIENT ALTERATION OF AWARENESS, COLON CA CONTRAST: IV CONTRAST: Gadavist ml: 6.8 TECHNIQUE: Noncontrast sagittal T1 spin echo and T2 fast spin echo, sagittal STIR, sagittal PD fast spin echo, f oraminal oblique sagittal T2 fast spin echo, axial gradient echo or T2 fast spin echo through the cer vical spine. After the administration of contrast, sagittal and axial T1 spin echo with fat saturati on through the cervical spine. COMPARISON: Bone scan dated 10/03/2021 FINDINGS: Image quality: Excellent. Alignment and curvature: There is loss of normal cervical lordosis. There is minimal grade 1 retroli sthesis of C3 on C4, C4 on C5, and C5 on C6. Marrow: Marrow demonstrates normal overall signal. Minimal reactive signal throughout the endplates of the cervical and upper thoracic spine. Spinal cord: Visualized spinal cord is normal in size, without white matter lesions. No suspicious intramedullary enhancement. No cerebellar tonsillar herniation. Paraspinous soft tissues: No paravertebral masses or suspicious enhancement. C2-C3: Mild disc desiccation and diffuse disc bulge. Mild facet and uncovertebral hypertrophy. Mild canal stenosis. Mild bilateral foraminal stenosis C3-C4: Mild disc height loss and desiccation. Mild diffuse disc bulge. Congenital canal stenosis. M ild facet and uncovertebral hypertrophy bilaterally. Moderate canal stenosis. Mild bilateral foramina l stenosis. C4-C5: Congenital canal stenosis. Moderate disc desiccation. Mild disc height loss and diffuse disc bulge. Mild facet and uncovertebral hypertrophy. Moderate canal stenosis. Moderate bilateral foramina l stenosis. C5-C6: Congenital canal stenosis. Moderate disc desiccation. Mild disc height loss and diffuse disc bulge. Mild facet and uncovertebral hypertrophy bilaterally. Moderate canal stenosis. Moderate bilate ral foraminal stenosis. C6-C7: Congenital canal stenosis. Mild disc desiccation and diffuse disc bulge. Mild facet and uncov ertebral hypertrophy bilaterally. Mild canal stenosis. Moderate to severe right and moderate left for aminal stenosis. Right C7 nerve root compression. C7-T1: Moderate disc height loss and desiccation. Congenital canal stenosis. Mild diffuse disc bulge . Mild facet and uncovertebral hypertrophy bilaterally. Mild canal stenosis. Mild bilateral foraminal stenosis. IMPRESSION: 1. Diffuse congenital canal stenosis with superimposed disc and facet disease, as well as uncovertebr al hypertrophy. 2. Multilevel canal stenoses, worst at C3-C4, C4-C5, and C5-C6, where there are moderate canal stenos es. 3. Multilevel foraminal stenoses, worst at C6-C7 where there is associated intraforaminal nerve root compression. Recommend correlation with clinical symptoms to ascertain relevance of this finding. 4. No evidence of metastatic disease. Reviewed by: Edwin Rodriguez MD on 12/04/2021 9:09 AM PST Approved by: Edwin Rodriguez MD on 12/04/2021 9:09 AM PST Station ID: [id number]
== END 2021-12-03 07:54 | disposition home or self-care (01) ==
LOC: DI 07:53
PROVIDERS: ATTEND Psychiatry & Neurology Neurology
DX: R40.4 Transient alteration of awareness (principal); C18.9 Malignant neoplasm of colon, unspecified; C77.2 Secondary and unspecified malignant neoplasm of intra-abdominal lymph nodes; R20.2 Paresthesia of skin; M47.812 Spondylosis without myelopathy or radiculopathy, cervical region; M50.31 Other cervical disc degeneration, high cervical region; M48.02 Spinal stenosis, cervical region; M47.813 Spondylosis without myelopathy or radiculopathy, cervicothoracic region; M48.03 Spinal stenosis, cervicothoracic region
CPT/HCPCS: 70553; 72156; A9585

== ENCOUNTER 2021-12-10 10:05 | Outpatient (CLI) | payer MEDICARE, OTHER ==
--- NOTE | 2021-12-10 16:17 | CONSULTATION NOTE ---
Palliative Care Consultation - Referral Referring Provider: Dr. Lauri Pappas Time of Visit: [id number] Referral setting: Home Referral Reason: Recurrent Colon Ca/Parkinsons Disease/Left hip pain - Information Sources Records reviewed: Previous records reviewed History/Review of Systems obtained from: Patient, Family (spouse, Shelly) Exam limitations: No limitations - History of Present Illness Brief History of Present Illness: This is a 71-year-old gentleman who presents today for initial palliative care consultation within his home with his , present due to recurrent colon cancer, left hip pain, and Parkinson's disease. Provider wore N95 mask. 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 He had a resection on 04/06/[address] Valdez and began FOLFOX on April 2020 with chemotherapy treatment completed 10/04/2020. Scans indicated now recurrence with metastatic disease on 09/2021. He is elected that he does not wish to proceed with any chemotherapy given past experiences. He has stable pain due to compression fractures due to underlying osteoporosis however, he is not a candidate for kyphoplasty. He has fear of taking a deep breath or coughing as is will result in significant pain due to these fractures. Patient and spouse report November The patient was is not waking up her breathing EMS was called and the patient then woke up in the emergency department where they identified the compression fractures to his spine. After this event, the patient opted to stop driving for safety. Last week, he fell when he was dressing landing on his left hip on the floor. Since that time he has had to be ambulatory with a walker. At baseline, the xi edwards usually does not ambulate with a walker but has needed to since Friday. He reports the pain specifically to his left hip. He has been utilizing acetaminophen and tramadol 50 mg as needed for pain. Both the patient and spouse report that there has been a reduction in the patient's pain and improvement in his walking. He is always been able to bear weight. He has not been seen or evaluated by any provider regarding this fall. Patient reports that he has been slowly making progress. The patient reports an overall reduced appetite. Since the beginning of his journey in 2019 he originally lost 50 pounds and then another 25 pounds. He is consuming 4-5 small frequent meals or snacks throughout the day. He was diagnosed with Parkinson's disease approximately 2 years ago. A paternal uncle likely had Parkinson's disease at the end of life. Medical/Surgical History - Past Medical History Respiratory: reports: Other (Pulmonary Nodule) Neuro: Parkinson's Endocrine/Autoimmune: reports: None GI: reports: Other (stage IV sigmoid colon cancer 09/2021) : reports: None HEENT: reports: Chronic vision loss, Glaucoma Psych: reports: None Musculoskeletal: reports: Osteoarthritis, Osteoporosis Derm: reports: None MRSA Hx?: No - Past Surgical History General: reports: Other (Hernia repair) - Substance History Use: Uses substance without health or social issues: NONE (Smoked canabasis on and off) Social History - Living Situation Living arrangement: At home Living Situation: With spouse/s.o. Support System: Patient grew up in [place]. He has 4 daughters. He and have his have been for 30 years in January. They have lived on [facility] for 24 years. 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 His is originally from [place]. They have support from their local friends and community. They have a strong support through the [facility] in [place]. The patient finds his [employer] an important part of his foundation. Family History - Family History Family History: Mother: , Father: Medications/Allergies - Medications Home Medications: Ambulatory Orders Medication Instructions Recorded Confirmed Latanoprost 0.005% Ophth Drops 1 drops LEFTEYE QPM 11/04/17 11/14/21 [Xalatan Ophth Drops] Ascorbic Acid [Vitamin C] 3,000 mg PO DAILY 07/24/21 11/14/21 Carbidopa/Levodopa 25/100 [Sinemet 2 tab PO TID 07/24/21 11/14/21 25 mg/100 mg] Cholecalciferol [Vitamin D3] 125 mcg PO DAILY 07/24/21 11/14/21 Vitamin E 400 unit PO DAILY 07/24/21 11/14/21 Zinc Gluconate [Zinc] 30 mg PO DAILY 07/24/21 11/14/21 Acetaminophen [Tylenol Extra 500 mg PO Q4H PRN MDD NTE 12/10/21 12/10/21 Strength] 3,000mg/24hr Carbidopa/Levodopa ER 50/200 1 tab PO QPM 12/10/21 12/10/21 [Sinemet Cr 50 mg/200 mg] Magnesium Glycinate, Mag Oxide 750 mg PO DAILY 12/10/21 12/10/21 [Magnesium Glycinate] Melatonin/Pyridoxine [Melatonin 5 1 tab PO QPM PRN 12/10/21 12/10/21 mg Tablet] Mk 7/K-2 100 mcg PO DAILY 12/10/21 Multivitamin 1 tab PO DAILY 12/10/21 12/10/21 Quercetrin Bromelian 1 cap PO DAILY 12/10/21 polyethylene glycoL 3350 [Miralax] 17 gm PO DAILY 12/10/21 12/10/21 traMADol [Ultram] 50 mg PO Q4H PRN 12/10/21 12/10/21 - Allergies Allergies/Adverse Reactions: Allergies Allergy/AdvReac Type Severity Reaction Status Date / Time prednisone Allergy Severe Anaphylaxis Verified 10/31/21 13:50 Review of Systems - Constitutional Constitutional: reports: Fatigue, Poor appetite, Weight loss (see HPI). denies: Fever - Eyes Eyes: reports: Corrective lenses, Other (Scheduled to have cataract surgery) - Ears, Nose & Throat Ears, Nose & Throat: denies: Hearing loss, Hearing aids - Cardiovascular Cardiovascular: denies: Chest pain, Edema - Respiratory Respiratory: denies: Wheezing - Gastrointestinal Gastrointestinal: reports: Poor appetite, Early satiety. denies: Abdominal d istention, Constipation (managed with miralax), Nausea, Vomiting - Genitourinary Genitourinary: denies: Dysuria - Musculoskeletal Musculoskeletal: reports: Back pain, Muscle weakness, Joint pain (left hip s/p fall on Friday), Assistive devices (using walker). denies: Joint swelling - Integumentary Integumentary: reports: Dryness - Neurological Neurological: reports: General weakness, Other (Tremor due to Parkinsons' disease). denies: Headache - Endocrine Endocrine: denies: Diabetes type 2 - All Other Systems All Other Systems: reports: Reviewed and negative Physical Exam - Vital Signs Temperature: 36.6 C Pulse Rate: 80 O2 Saturation: 98 (on RA) Blood Pressure: 133/82 - Physical Exam General Appearance: positive: No acute distress, Alert, Other (Appears older than stated age, well groomed, thin) Eyes Bilateral: positive: Normal inspection, Other (+corrective lenses) ENT: positive: No signs of dehydration Neck: positive: Trachea midline Cardiovascular: positive: Regular rate & rhythm, No murmur Respiratory: positive: No respiratory distress, Breath sounds nml Abdomen: positive: Non-tender, Soft, Nml bowel sounds. negative: Guarding, Distended Skin: positive: Dryness Extremities: positive: No pedal edema, Other (Left hip tender to palpation with no effusion, slightly ataxic gait with walker) Neurologic/Psychiatric: positive: Oriented x3, Weakness (BLE, generalized), Other (Intermittent action temor noted to BUE with left greater than right) Palliative Care - POLST Patient has POLST: No Pain: Pain improved (To left hip after acute fall using tylenol or tramadol) Tiredness/Fatigue: Moderate (4-6) Drowsiness/Sedation: Mild (1-3) Nausea: None Anorexia: Moderate (4-6) Dyspnea: None Feelings of wellbeing/Perceived Quality of Life: Fair Constipation: Managed Performance Status: Patient is ambulatory at baseline without an assistive device however, after fall on Friday is now ambulatory with a walker. Is requiring increased assistance with caregiving needs including showering on would benefit from a shower chair. - Palliative Care Discussion: Patient has unfortunately been diagnosed with reoccurring sigmoid colon cancer and has elected not to proceed with chemotherapy as is his preference. As the patient has prior experience with chemotherapy in 2019 he recognizes how this would proceed and is not something that he wishes to trial again. He feels that if he had researched and read more acutely the first time with his initial diagnosis he may not have elected to proceed with chemotherapy. This time around, he is wishing to take his chances with altering his diet with having no sugar and no chemotherapy. He recognizes that he has a limited time given his cancer however, he wishes to focus on quality and comfort measures during the time that he is allowed. Gently introduced the role of hospice services today and this is something that the patient and spouse would be amenable for in the future. Patient has acute pain to the left hip status post a fall. Positively, able to bear weight however, given the fall and underlying osteoporosis recommendation made to obtain an x-ray to rule out a fracture and patient and spouse are agreeable. In the interim, would continue acetaminophen and tramadol for pain and symptom management. The patient has a daughter who overdosed on oxycodone and therefore, this would be of barrier moving forward as this is not something that he would wish to be prescribed. Impression and Recommendations - Palliative Care Impression: This is an unfortunate 71-year-old gentleman who has current stage IV sigmoid colon cancer, Parkinson's disease, osteoporosis, and acute left hip pain. Will obtain x-ray of the left hip to rule out fracture given his underlying osteoporosis and history of fall. Given his generalized muscle atrophy due to his sigmoid colon cancer and Parkinson's disease would benefit from home health physical therapy and occupational therapy for strengthening program, balance, and fall prevention. Palliative care will continue to provide care coordination, pain and symptom management and anticipatory guidance with transition to hospice when medically appropriate. Recommendations/Counseling Done: 1. Acute left hip pain status post fall. Improving however, persisting in the setting of osteoporosis. X-ray of left hip and pelvis x3 views requested to rule out fracture. In the interim may utilize tramadol 50 mg every 4 hours as needed for pain. Continue Tylenol 500 mg every 4 hours as needed for pain not to exceed 3000 mg daily from all sources. Encouraged utilization of walker for ambulation and fall prevention. Advised to sit down when changing close. Recommendations made for obtainment of a shower chair and recommendations made for obtainment locally provided to spouse. 2. Parkinson's disease. On carbidopa/levodopa. Followed by neurologist, Dr. Desirae Swartz, with brain MRI pending. Given Parkinson's disease, muscular atrophy, generalized weakness will request home health physical therapy and Occupational Therapy for fall prevention, bilateral lower extremity strengthening, and home safety evaluation. 3. Back pain due to compression fractures. Has known T4 and T6 compression fractures with underlying osteoporosis. Stable pain at this time. Continue tramadol as ordered. Per oncology notes, patient is not a candidate for kyphoplasty. 4. Osteoporosis. Recommendations have been made for Zometa however, the patient declines this. 5. Recurrent stage IV sigmoid colon cancer. Patient has elected not to proceed with further chemotherapy. Wishes to focus on comfort measures and quality of life. Introduced the role of hospice services today and patient is amenable regarding this in the future. Does not have a living will in place. We will continue to tease out goals of care moving forward. Has follow-up with oncology on 12/12 and will follow with recommendations. 6. Caregiver burden. Patient's spouse is looking towards the future for additional support as she is hesitant to leave the patient home. Will request palliative care volunteer for respite. FACE TO FACE: It would be a taxing and considerable effort for the patient to leave his home secondary to his Parkinson's disease and, back pain due to compression fractures, lower extremity weakness. Would benefit from home health physical therapy and occupational therapy services for bilateral lower extremity strengthening, balance, fall prevention, home safety evaluation to aid in ADLs. Total time spent 75 minutes with greater than 50% of this spent in counseling and coordination of care with patient and spouse, review of palliative and hospice philosophy, pain and symptom management, x-ray obtainment, and anticipatory guidance. Disclaimer: The chart note was formulated using voice recognition technology and unfortunately sound alike errors may occur.
== END 2021-12-10 10:06 | disposition home or self-care (01) ==
LOC: PC 10:05
PROVIDERS: ATTEND Nurse Practitioner Family
DX: C18.7 Malignant neoplasm of sigmoid colon (principal); Z51.5 Encounter for palliative care; G20 Parkinson's disease; M25.551 Pain in right hip; M80.88XD Other osteoporosis with current pathological fracture, vertebra(e), subsequent encounter for fracture with routine healing; G89.11 Acute pain due to trauma; M25.552 Pain in left hip
CPT/HCPCS: 99345

== ENCOUNTER 2021-12-12 09:53 | Outpatient (CLI) | payer MEDICARE, OTHER ==
--- NOTE | 2021-12-12 16:12 | XRAY Report ---
PROCEDURE: Hip w/Pelvis 2-3V LT INDICATIONS: LT HIP PAIN TECHNIQUE: AP pelvis with lateral view(s) of the left hip(s). COMPARISON: None. FINDINGS: Bones: No definite acute or subacute fractures or dislocations. Pelvic ring appears intact. No sheila picious bony lesions. Diffuse osteopenia. Soft tissues: The visualized bowel gas pattern is normal. No suspicious soft tissue calcifications. IMPRESSION: Diffuse osteopenia. Left hip without definite acute/subacute fractures. If there is continued clinical concern for pathology or occult fracture, consider follow-up imaging w ith repeat radiographs versus advanced imaging (CT, MRI, bone scan) if symptoms persist. Reviewed by: Willis Schwartz MD on 12/12/2021 4:11 PM PDT Approved by: Willis Schwartz MD on 12/12/2021 4:11 PM PDT Station ID: [id number]
== END 2021-12-12 09:54 | disposition home or self-care (01) ==
LOC: DI 09:53
PROVIDERS: ATTEND Nurse Practitioner Family
DX: M25.552 Pain in left hip (principal); M85.88 Other specified disorders of bone density and structure, other site

== ENCOUNTER 2021-12-27 10:10 | Outpatient (CLI) | payer MEDICARE, OTHER ==
--- NOTE | 2021-12-27 13:36 | CONSULTATION NOTE ---
Palliative Care Follow Up - Referral Referring Provider: MICHELLE White Time of Visit: 1010-115 Referral setting: Home Referral Reason: Back and left hip pain/Recurrent Colon Cancer - Information Sources Records reviewed: Previous records reviewed History/Review of Systems obtained from: Patient, Family (spouse, Shelly) Exam limitations: No limitations - History of Present Illness Update Brief HPI Update: This is a 71-year-old gentleman who presents today for follow-up within his home with his present due to recurrent colon cancer, low back and left hip pain and advance care planning. Provider wore N95 mask. The patient sustained a fall in his bedroom on 12/05 landing on the carpet on his left hip that resulted in increased pain. Initially, he was unable to ambulate easily even with the use of a walker. And then getting up and down off of the toilet required assistance with his spouse. This is subsequently improved and he is no longer requiring help from his spouse getting up and down off the toilet and he is overall moving better with the walker. He is also being seen by home health physical therapy. However, he reports that he is having some increased discomfort after working with physical therapy to his left hip as well as more specifically to his back. Right now, the pain in his lower back is more prominent. This has been established previously due to known T4 and T6 compression fractures. He had an x-ray obtained on 12/12/2021 that demonstrated "diffuse osteopenia. Left hip without definitive acute/subacute fractures." The patient's pain to his left hip continues to improve. He was started on calcitonin nasal spray after he had a significant descent onto his toilet resulting in increased lower back pain on 12/17. Both the patient and spouse have not noticed any change in the patient's pain since initiation of calcitonin. Denies any radiation down his legs with neuropathy. Remains continent of bowel and bladder. Last week, he did discontinue taking his tramadol for a few days and switch to Tylenol. This was not effective for his pain relief. He discontinue the tramadol after he had some brain fuzziness 1 day. Since resuming the tramadol 50 mg tablets typically taking up to 3-4 times per day he has had improvement of his pain and no issues with brain fog. He reports no pain at rest. If he is up and moving about he will have a 6 out of 10 rating for pain most pacifically to his lower back and taking tramadol able to send to approximately 4 out of 10. He reports having a bowel movement typically daily without straining. His appetite has improved a little over the last 2 weeks. He is also concerned regarding some dry flakiness to his face and [place]. Due to his ability to move easily they have canceled his pending cataract surgery. He does report some intermittent dizziness and typically changes positions slowly. He will have 1 cup of decaf coffee on a daily basis and about 10 ounces of water up to 4-5 times per day. 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 Recurrent stage IV sigmoid colon cancer diagnosed 09/2021; Parkinson's disease; subcentimeter pulmonary lung nodule likely new metastases, T4 and T6 compression fractures 07/2021, glaucoma, cataracts, osteoarthritis, osteoporosis, hernia repair, history of smoking cannabis on and off. Social History - Living Situation Living arrangement: At home Living Situation: With spouse/s.o. Support System: Patient grew up in [place]. He has 4 daughters. He and his have been for 30 years in January. They have lived on [facility] for [address] years. 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 His is originally from [place]. They have support from their local friends and community. They have a strong support from the [facility] in [place]. The patient finds his Pentecostalism important part of his foundation. Their grandson is planning to relocate and will be living in their home at the end of December for a few months and providing additional support. Followed by [facility] health PT and OT. Medications/Allergies - Medications Home Medications: Ambulatory Orders Medication Instructions Recorded Confirmed Latanoprost 0.005% Ophth Drops 1 drops LEFTEYE QPM 11/04/17 12/12/21 [Xalatan Ophth Drops] Ascorbic Acid [Vitamin C] 3,000 mg PO DAILY 07/24/21 12/12/21 Carbidopa/Levodopa 25/100 [Sinemet 2 tab PO TID 07/24/21 12/12/21 25 mg/100 mg] Cholecalciferol [Vitamin D3] 125 mcg PO DAILY 07/24/21 12/12/21 Vitamin E 400 unit PO DAILY 07/24/21 12/12/21 Zinc Gluconate [Zinc] 30 mg PO DAILY 07/24/21 12/12/21 Acetaminophen [Tylenol Extra 500 mg PO Q4H PRN MDD NTE 12/10/21 12/12/21 Strength] 3,000mg/24hr Carbidopa/Levodopa ER 50/200 1 tab PO QPM 12/10/21 12/12/21 [Sinemet Cr 50 mg/200 mg] Magnesium Glycinate, Mag Oxide 750 mg PO DAILY 12/10/21 12/12/21 [Magnesium Glycinate] Melatonin/Pyridoxine [Melatonin 5 1 tab PO QPM PRN 12/10/21 12/12/21 mg Tablet] Mk 7/K-2 100 mcg PO DAILY 12/10/21 12/12/21 Multivitamin 1 tab PO DAILY 12/10/21 12/12/21 Quercetrin Bromelian 1 cap PO DAILY 12/10/21 12/12/21 polyethylene glycoL 3350 [Miralax] 17 gm PO DAILY 12/10/21 12/12/21 traMADol [Ultram] 50 mg PO Q4H PRN 12/10/21 12/12/21 Calcitonin,[place],Synthetic 1 spray INH DAILY MDD x14 days, 12/17/21 12/17/21 [Calcitonin-[place]] alternate nares Calcitonin,[place],Synthetic 1 spray IN DAILY MDD alternate 12/27/21 12/27/21 [Calcitonin-[place]] nostil x 2 weeks Meloxicam [Mobic] 1 tab PO DAILY MDD x30 days 12/27/21 12/27/21 - Allergies Allergies/Adverse Reactions: Allergies Allergy/AdvReac Type Severity Reaction Status Date / Time prednisone Allergy Severe Anaphylaxis Verified 10/31/21 13:50 Review of Systems - Constitutional Constitutional: reports: Weight loss (Left MAC 24cm 12/27/21). denies: Fever - Eyes Eyes: reports: Corrective lenses - Ears, Nose & Throat Ears, Nose & Throat: reports: Vertigo (one episode recently, resolved) - Cardiovascular Cardiovascular: denies: Chest pain, Edema - Respiratory Respiratory: denies: Cough - Gastrointestinal Gastrointestinal: reports: Early satiety, Other (Appetite recently improved, see HPI for full details). denies: Abdominal pain, Constipation (managed with miralax), Nausea, Vomiting - Genitourinary Genitourinary: denies: Dysuria, Incontinence - Musculoskeletal Musculoskeletal: reports: Back pain, Muscle weakness, Joint pain (left hip s/p fall on 12/05, negative fracture on X-ray 12/12), Assistive devices (using walker). denies: Joint swelling - Integumentary Integumentary: reports: Dryness - Neurological Neurological: reports: General weakness, Dizziness (see HPI), Other (Tremor due to Parkinsons' disease). denies: Headache, Numbness - All Other Systems All Other Systems: reports: Reviewed and negative Physical Exam - Vital Signs Temperature: 36.8 C Pulse Rate: 87 O2 Saturation: 98 (on RA) Blood Pressure: 125/81 (sitting) - Physical Exam General Appearance: positive: No acute distress, Alert, Other (Appears older than stated age, well groomed, thin) Eyes Bilateral: positive: Normal inspection, Other (+corrective lenses) ENT: positive: No signs of dehydration Neck: positive: Trachea midline Cardiovascular: positive: Regular rate & rhythm, No murmur Respiratory: positive: No respiratory distress, Breath sounds nml Abdomen: positive: Non-tender, Soft, Nml bowel sounds. negative: Distended Skin: positive: Dryness, Other (flaking to cheeks and along sideburns consistent with seborheic dermatitis) Extremities: positive: No pedal edema, Other (Left hip nontender to palpation; c/o pain to left hip with muscle resistant to LLE; Coccyx tender to deep paplation) Neurologic/Psychiatric: positive: Oriented x3, Mood/affect nml, Weakness (BLE, generalized--improved from last evaluation with resistance), Other (Intermittent action temor noted to BUE with left greater than right) Comments/Other: Standing BP 137/76 Palliative Care - POLST Patient has POLST: Yes POLST Status: DNR, Comfort Measures Pain: Pain improved (Lower back and left hip, but does not continued with pain despite tramadol 50mg use up to 4 times per day) Performance Status: Patient is ambulatory and using an assistive device since his fall on 12/05. Is continent of bowel and bladder. Able to self feed. Spouse to obtain a bed rail for additional support. No recent falls since 12/05. - Palliative Care Discussion: Patient developed acute pain to the left hip status post fall on 12/05 with x-ray on 12/03/2015 demonstrated no acute or subacute fracture to the left hip and evidence of diffuse osteopenia. He has been responding well to utilization of tramadol for pain management however, after landing hard on the toilet developed more acute lower back pain in the setting of history of T4 and T6 compression fractures. Would benefit from introduction of long-acting NSAID such as Mobic 7.5 mg daily for approximately 30 days in addition to his as needed tramadol. Patient is amenable to trying this. We will continue his calcitonin nasal spray for an additional 2 weeks for a total of 4 weeks due to concern for compression fracture. Reviewed POLST today at length with patient and spouse and patient has elected to focus on comfort measures and be DN AR. He ultimately wishes to remain at home to have a comfortable and dignified with the support of hospice services when appropriate. He presently continues to work with home health services and therefore will hold off on hospice services at the present time. Results - Lab Results Lab results reviewed: Yes Lab and Imaging Results: 12/12/21 Left hip x-ray Impression and Recommendations - Palliative Care Impression: This is an unfortunate 71-year-old gentleman who has recurrent stage IV sigmoid colon cancer, Parkinson's disease, osteoarthritis, low back pain and left hip pain status post fall 12/05. Imaging from was negative for acute fracture to the left hip. Is working with PT and OT with home health for strengthening, balance and fall prevention. Would benefit from introduction of meloxicam 7.5 mg daily for additional pain modality for control and comfort. Palliative care will continue to provide care coordination, pain and symptom management and anticipatory guidance with transition to hospice when medically appropriate. Recommendations/Counseling Done: 1.Left hip pain status post fall, 12/05. Improving. X-ray from 12/12 was negative for acute or subacute fracture. Continue to encourage utilization of walker with ambulation. May continue tramadol 5 mg every 4 hours as needed for pain. Continue Tylenol 500 mg every 4 hours as needed for pain not to exceed 3000 mg daily from all sources. Continue to work with home health PT and OT. Continue to monitor. 2. Low back pain. In the setting of history of T4 and T6 compression fractures. However, patient reporting specific pain to the coccygeal area. Unclear if underlying compression fracture and given patient's difficulty to leave the home environment not able to image at this time. Continue calcitonin nasal spray 1 spray in 1 nostril per day, alternating for 2 additional weeks then discontinue. Add meloxicam 7.5 mg daily with food for at least 30 days for additional pain management. Discussed purpose, dose, and side effects of meloxicam at length with patient and spouse with understanding verbalized. No history of CKD or GI bleed. Continue tramadol 50 mg every 4 hours as needed for pain. 3. Dizziness in the setting of Parkinson's disease. Noted with positional changes. Encourage slow position changes. No evidence of orthostatic hypotension on examination. Continue to encourage oral hydration throughout the day. 4. Recurrent stage IV sigmoid colon cancer. Patient is elected not to proceed with further chemotherapy. Wishes to focus on comfort measures and quality of life. Status post follow-up with oncology on 12/03/2015 and will need to follow- up as needed with oncology in the future. 5. Advanced care planning. POLST reviewed at today at length with patient and spouse and patient is elected to be DN AR with comfort measures. He only wishes to have antibiotics for comfort measures and no artificial nutrition by tube. He would wish to transition to hospice services when appropriate for additional support. [facility] Total time spent 65 minutes with greater than 50% of the spent in counseling coronation of care with the patient and spouse; review of hospice philosophy; advance care planning with review of POLST and completion; pain and symptom management; and anticipatory guidance. Disclaimer: The chart note was formulated using voice recognition technology and unfortunately sound alike errors may occur.
== END 2021-12-27 10:11 | disposition home or self-care (01) ==
LOC: PC 10:10
PROVIDERS: ATTEND Nurse Practitioner Family
DX: Z51.5 Encounter for palliative care (principal); M25.552 Pain in left hip; M53.3 Sacrococcygeal disorders, not elsewhere classified; M85.89 Other specified disorders of bone density and structure, multiple sites; C18.7 Malignant neoplasm of sigmoid colon; G20 Parkinson's disease; R42 Dizziness and giddiness; Z79.899 Other long term (current) drug therapy; Z91.81 History of falling; Z87.311 Personal history of (healed) other pathological fracture; Z66 Do not resuscitate
CPT/HCPCS: 99350

== ENCOUNTER 2022-01-11 10:25 | Outpatient (CLI) | payer MEDICARE, OTHER ==
--- NOTE | 2022-01-11 16:41 | CONSULTATION NOTE ---
Palliative Care Follow Up - Referral Referring Provider: Dr. Lauri Mcdermott Time of Visit: [id number] Referral setting: Home Referral Reason: Decreased appetite/Insomnia/Colon Ca - Information Sources Records reviewed: Previous records reviewed History/Review of Systems obtained from: Patient, Family (spouse, Shelly) - History of Present Illness Update Brief HPI Update: This is a 71-year-old gentleman who presents today for follow-up within his home with his present due to recurrent colon cancer, debility, decreased appetite, and insomnia due to nocturia. Provider wore N95 mask. The patient sustained a fall in his bedroom on 12/05 landing on the carpet on his left hip that resulted in increased pain. He initially, was unable to ambulate easily with use of a walker. He has subsequently progressed and is ambulatory with his walker. He has known T4 and T6 compression fractures. X-ray obtained on 12/12 demonstrated, diffuse osteopenia. Left hip without definitive acute/subacute fractures." Patient's pain to his left hip has continued to improve. He is no longer using the calcium tone and nasal spray. He uses tramadol as needed typically 3-4 times per day. Pain does not awaken him from sleep. He continues with mobic 7.5mg daily that he has found assistive in general for pain. He has been discharged from home health physical therapy. He continues to work with occupational therapy. They plan on getting a bed rail for the patient to ease getting in and out of bed. Spouse, expresses concerns regarding the patient's oral intake. Patient is consuming about 25% of his meals that are "small to begin with." We will have 3 meals scheduled per day with some snacks in between. Patient reports currently satiety without nausea or vomiting. He is napping quite frequently during the day. He is stiff and regularly every few hours to the evenings. No noted change in stream. Does report has noticed when he reduces his liquid intake before bed there is improvement with his voiding. 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 Recurrent stage IV sigmoid colon cancer diagnosed 09/2021; Parkinson's disease; subcentimeter pulmonary lung nodule likely new metastases, T4 and T6 compression fractures 07/2021, glaucoma, cataracts, osteoarthritis, osteoporosis, hernia repair, history of smoking cannabis on and off. Social History - Living Situation Living arrangement: At home Living Situation: With spouse/s.o. Support System: Patient grew up in [place]. He has 4 daughters. He and his have been for 30 years in January. They have lived on [facility] for 24 years. 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 His is originally from [place]. They have support from their local friends and community. They have a strong support from the [facility] in [place]. The patient finds his [employer] important part of his foundation. Having visitors around Mother's day and set expectations regarding fatigue for patient and . [facility]. Medications/Allergies - Medications Home Medications: Ambulatory Orders Medication Instructions Recorded Confirmed Latanoprost 0.005% Ophth Drops 1 drops LEFTEYE QPM 11/04/17 12/12/21 [Xalatan Ophth Drops] Ascorbic Acid [Vitamin C] 3,000 mg PO DAILY 07/24/21 12/12/21 Carbidopa/Levodopa 25/100 [Sinemet 2 tab PO TID 07/24/21 12/12/21 25 mg/100 mg] Cholecalciferol [Vitamin D3] 125 mcg PO DAILY 07/24/21 12/12/21 Vitamin E 400 unit PO DAILY 07/24/21 12/12/21 Zinc Gluconate [Zinc] 30 mg PO DAILY 07/24/21 12/12/21 Acetaminophen [Tylenol Extra 500 mg PO Q4H PRN MDD NTE 12/10/21 12/12/21 Strength] 3,000mg/24hr Carbidopa/Levodopa ER 50/200 1 tab PO QPM 12/10/21 12/12/21 [Sinemet Cr 50 mg/200 mg] Magnesium Glycinate, Mag Oxide 750 mg PO DAILY 12/10/21 12/12/21 [Magnesium Glycinate] Melatonin/Pyridoxine [Melatonin 5 1 tab PO QPM PRN 12/10/21 12/12/21 mg Tablet] Mk 7/K-2 100 mcg PO DAILY 12/10/21 12/12/21 Multivitamin 1 tab PO DAILY 12/10/21 12/12/21 Quercetrin Bromelian 1 cap PO DAILY 12/10/21 12/12/21 polyethylene glycoL 3350 [Miralax] 17 gm PO DAILY 12/10/21 12/12/21 traMADol [Ultram] 50 mg PO Q4H PRN 12/10/21 12/12/21 Meloxicam [Mobic] 1 tab PO DAILY 12/27/21 12/27/21 Mirtazapine 7.5 mg PO QPM 01/15/22 01/15/22 - Allergies Allergies/Adverse Reactions: Allergies Allergy/AdvReac Type Severity Reaction Status Date / Time prednisone Allergy Severe Anaphylaxis Verified 10/31/21 13:50 Review of Systems - Constitutional Constitutional: reports: Poor appetite, Weight loss (Left MAC 24cm 01/11/22; Left MAC 24cm 12/27/21). denies: Fever - Eyes Eyes: reports: Corrective lenses, Other (cataracts OU with surgery on hold) - Ears, Nose & Throat Ears, Nose & Throat: denies: Hearing aids - Cardiovascular Cardiovascular: denies: Chest pain, Edema - Respiratory Respiratory: denies: Other (denies cough during meals) - Gastrointestinal Gastrointestinal: reports: Early satiety. denies: Abdominal pain, Constipation (managed with miralax with bowel movement typically 1-2x per day), Rectal bleeding, Nausea, Vomiting - Genitourinary Genitourinary: reports: Nocturia. denies: Dysuria, Incontinence - Musculoskeletal Musculoskeletal: reports: Back pain (improved, see HPI), Muscle weakness, Joint pain (left hip s/p fall on 12/05, negative fracture on X-ray 12/12), Assistive devices (uses walker), Transfer issues (unable to get in and out of vehicle) - Integumentary Integumentary: reports: Dryness - Neurological Neurological: reports: General weakness, Other (Tremor due to Parkinsons' disease). denies: Headache, Memory problems - Psychiatric Psychiatric: reports: Other (Canabasis used to help him sleep but no longer smokes it due to concern for coughing and known compression fractures leading to pain). denies: Depression (denies loss of interest in activity. Enjoys reading his scriptures daily.) - Hematologic/Lymphatic Hematologic/Lymph: denies: Recurrent infections - All Other Systems All Other Systems: reports: Reviewed and negative Physical Exam - Vital Signs Temperature: 36.6 C Pulse Rate: 75 O2 Saturation: 97 (on RA) Blood Pressure: 135/82 - Physical Exam General Appearance: positive: No acute distress, Alert, Other (Appears older than stated age, well groomed, thin) Eyes Bilateral: positive: Normal inspection, Other (+corrective lenses) ENT: positive: No signs of dehydration Neck: positive: Trachea midline Cardiovascular: positive: Regular rate & rhythm, No murmur Respiratory: positive: No respiratory distress, Breath sounds nml Abdomen: positive: Non-tender, Soft, Nml bowel sounds. 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) Neurologic/Psychiatric: positive: Oriented x3 (Memory recall 11/29), Mood/affect nml, Weakness (BLE, generalized--improved), Other (Intermittent action temor noted to BUE with left greater than right) Palliative Care - POLST Patient has POLST: Yes POLST Status: DNR, Comfort Measures Pain: Pain improved (with standing mobic 7.5mg and as needed tramadol) Tiredness/Fatigue: Moderate (4-6) Nausea: None Anorexia: Moderate (4-6) Dyspnea: None Depression: None Anxiety: None Sleep: Variable sleep pattern Constipation: Managed Performance Status: Patient is ambulatory and has been using a walker since his fall on 12/05. Is continent of bowel and bladder. Able to self feed. No recent falls. - Palliative Care Discussion: Patient developed acute pain to his left hip status post fall on 12/05 with a negative x-ray on 12/12 that did not demonstrate an acute fracture. His mobility has gradually improved and his pain is well controlled with daily Mobic 7.5 mg and as needed tramadol. Both the patient and spouse relay that the patient has made progress with working with physical therapy and has subsequently been discharged. He continues to work with occupational therapy. Therefore, he would benefit from continued use of Mobic 7.5 mg. Both the patient and spouse relay that the patient is up frequently at night and has difficulty falling back asleep. This is in the setting of nocturia as well as overall decreased appetite. Therefore, will trial mirtazapine 7.5 mg at bedtime has a patient is no longer smoking cannabis to self with sleep. Impression and Recommendations - Palliative Care Impression: This is an unfortunate 71-year-old gentleman who has recurrent stage IV sigmoid colon cancer, Parkinson's disease, osteoarthritis, low back and left hip pain, anorexia, and insomnia. Imaging on 12/12 was negative for acute fracture to the left hip and has been discharged from home health PT. Would benefit from trial of mirtazapine 7.5 mg in the evening for sleep and appetite stimulation. Palliative care will continue provide care coordination, pain and symptom management as well as anticipatory guidance with transition to hospice services when medically appropriate. Recommendations/Counseling Done: 1. Left hip pain status post fall, 12/05. Improved. X-ray from 12/12 was negative for acute or subacute fracture status post home health physical therapy. Continues to work with home health occupational therapy. Continue utilization of a walker with ambulation. Continue tramadol 50 mg every 4 hours as needed for pain. Continue acetaminophen 500 mg every 4 hours as needed for pain not to exceed 3000 mg daily from all sources. Given the patient's underlying osteoarthritis continue meloxicam 7.5 mg daily with food. 90-day supply for meloxicam sent to the patient's mail order pharmacy. Continue to monitor and adjust pain regimen as needed. 2. Decreased oral intake. Encourage small frequent meals throughout the day. Return here to implement high protein foods. Trial of mirtazapine 7.5 mg in the evening for appetite stimulation. Rx sent to mail order pharmacy. Reviewed purpose, dose, and side effects with patient and spouse at length with questions answered and addressed. 3. Nocturia. Some mobility factor contributing. Advised to Avoid drinking 1 to 2 hours prior to bed to decreased symptoms. 4. Recurrent stage IV sigmoid colon cancer. Patient has elected not to proceed with further chemotherapy. Wishes to focus on comfort measures and quality of life. Status post follow-up with oncology on with need to follow-up with oncology if needed in the future. [facility] Total time spent 45 minutes with greater than 50% of this spent in counseling coronation of care with the patient and spouse; review of medication management and side effects; examination of patient; symptom management; and anticipatory guidance. Disclaimer: The chart note was formulated using voice recognition technology and unfortunately sound alike errors may occur.
== END 2022-01-11 10:26 | disposition home or self-care (01) ==
LOC: PC 10:25
PROVIDERS: ATTEND Nurse Practitioner Family
DX: Z51.5 Encounter for palliative care (principal); M25.552 Pain in left hip; R63.8 Other symptoms and signs concerning food and fluid intake; R35.1 Nocturia; C18.7 Malignant neoplasm of sigmoid colon; Z66 Do not resuscitate
CPT/HCPCS: 99349

== ENCOUNTER 2022-02-13 10:40 | Outpatient (CLI) | payer MEDICARE, OTHER ==
--- NOTE | 2022-02-13 12:41 | CONSULTATION NOTE ---
Palliative Care Follow Up - Referral Referring Provider: Dr. Lauri Pappas Time of Visit: 6618-1374 Referral setting: Home Referral Reason: Low back pain with left scortal pain/Nausea/Recurrent Colon Ca - Information Sources Records reviewed: Previous records reviewed History/Review of Systems obtained from: Patient, Family (spouse, Shelly) - History of Present Illness Update Brief HPI Update: This is a nino 71-year-old gentleman who presents today for follow-up within his home with his present due to recurrent colon cancer, debility, decreased appetite, insomnia, and lower back pain. Provider wore N95 mask. On last evaluation on 01/11 the patient was initiated on mirtazapine 7.5 mg at bedtime for insomnia. Patient reports that this is improved his overall sleep quality. reports that he is sleeping a lot during the day. Since initiation of mirtazapine his appetite has increased some but not significantly. His left MAC remained stable at 24 cm. The patient sustained a fall in his bedroom on 12/05 landing on the carpet on his left hip that resulted in increased pain. He initially was unable to ambulate easily even with the use of a walker and subsequently progressed utilizing a walker. He had an x-ray obtained on 12/12 that demonstrated diffuse osteopenia without definitive acute/subacute fractures. He has known T4 and T6 compression fractures. He is no longer ambulating with a walker and is fairly steady with his gait. No recent falls since 12/05. He is utilizing tramadol 50 mg approximately every 4 hours. Pain does not awaken him from sleep. He is also utilizing Mobic 7.5 mg grams daily with food. The patient is reporting some increased nausea and about 4 to 5 days ago did not have any. This morning, nausea returned after having an orange that was citrus. He is also reporting over the last several days intermittently having some right chest wall pain that will be sharp shooting that has been on and off for the last week to 10 days. No cardiac complaints. The pain will then subside. Does report that belching makes it better. Given this some underlying GERD versus gastritis and will therefore stop Mobic and initiate H2 heather. The patient denies any blood in stool. He is having regular bowel movements with use of his MiraLAX. He is eating well 4 meals per day however, in smaller quantities that he had been doing previously. He is reporting some pain to his lower back specifically on the left side that sometimes will have some radiation of pain. Is not losing control of bowel or bladder. Also reporting some left scrotal pain that is intermittent. Denies any swelling to scrotum or testicles. 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 Recurrent stage IV sigmoid colon cancer diagnosed 09/2021; Parkinson's disease; subcentimeter pulmonary lung nodule likely new metastases, T4 and T6 compression fractures 07/2021, glaucoma, cataracts, osteoarthritis, osteoporosis, hernia repair, history of smoking cannabis on and off. Social History - Living Situation Living arrangement: At home Living Situation: With spouse/s.o. Support System: Patient grew up in [place]. Has 4 daughters. He and his have been for 30 years in Jan, 2022. They have lived on [facility] for [address]. 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 His is originally from [place]. They have support from their local friends and community. They have a strong support system from the [facility] in [place]. The patient finds his [employer] important part of his function. Patient was recently visited by his 2 daughters in the last 1 who left on Friday. This resulted in extra fatigue. For him. He is starting to find that he is recovering his energy level. Their grandson recently moved in with his 2 dogs and he plans on going to residing with them periodically commuting to [place] for his work and eventually transitioning to a job of on the [employer] to allow for further assistance within the home with caregiving support. Medications/Allergies - Medications Home Medications: Ambulatory Orders Medication Instructions Recorded Confirmed Latanoprost 0.005% Ophth Drops 1 drops LEFTEYE QPM 11/04/17 12/12/21 [Xalatan Ophth Drops] Ascorbic Acid [Vitamin C] 3,000 mg PO DAILY 07/24/21 12/12/21 Carbidopa/Levodopa 25/100 [Sinemet 2 tab PO TID 07/24/21 12/12/21 25 mg/100 mg] Cholecalciferol [Vitamin D3] 125 mcg PO DAILY 07/24/21 12/12/21 Vitamin E 400 unit PO DAILY 07/24/21 12/12/21 Zinc Gluconate [Zinc] 30 mg PO DAILY 07/24/21 12/12/21 Acetaminophen [Tylenol Extra 500 mg PO Q4H PRN MDD NTE 12/10/21 12/12/21 Strength] 3,000mg/24hr Carbidopa/Levodopa ER 50/200 1 tab PO QPM 12/10/21 12/12/21 [Sinemet Cr 50 mg/200 mg] Magnesium Glycinate, Mag Oxide 750 mg PO DAILY 12/10/21 12/12/21 [Magnesium Glycinate] Melatonin/Pyridoxine [Melatonin 5 1 tab PO QPM PRN 12/10/21 12/12/21 mg Tablet] Mk 7/K-2 100 mcg PO DAILY 12/10/21 12/12/21 Multivitamin 1 tab PO DAILY 12/10/21 12/12/21 Quercetrin Bromelian 1 cap PO DAILY 12/10/21 12/12/21 polyethylene glycoL 3350 [Miralax] 17 gm PO DAILY 12/10/21 12/12/21 traMADol [Ultram] 50 mg PO Q4H PRN 12/10/21 12/12/21 Mirtazapine 7.5 mg PO QPM 01/15/22 01/15/22 Famotidine [Pepcid] 20 mg PO MDD [id number] then daily 02/13/22 - Allergies Allergies/Adverse Reactions: Allergies Allergy/AdvReac Type Severity Reaction Status Date / Time prednisone Allergy Severe Anaphylaxis Verified 10/31/21 13:50 Review of Systems - Constitutional Constitutional: reports: Fatigue (sleeping more), Poor appetite, Weight stable (Left MAC 24cm 02/13/2022; Left MAC 24cm 01/11/22; Left MAC 24cm 12/27/21). denies: Fever - Eyes Eyes: reports: Corrective lenses, Other (cataracts OU --cancelled cataract surgery) - Ears, Nose & Throat Ears, Nose & Throat: denies: Hearing aids - Cardiovascular Cardiovascular: denies: Edema - Respiratory Respiratory: reports: Other (right chestwall pain, intermittent improves with belching). denies: Cough - Gastrointestinal Gastrointestinal: reports: Nausea (see HPI), Poor appetite, Early satiety. denies: Abdominal pain, Constipation (managed with miralax and controlled), Rectal bleeding, Vomiting - Genitourinary Genitourinary: denies: Dysuria, Incontinence - Musculoskeletal Musculoskeletal: reports: Back pain (left lower back), Muscle weakness, Joint pain (left hip s/p fall on 12/05, negative fracture on X-ray 12/12). denies: Assistive devices ( no longer ambulating with walker for several weeks and no recent falls) - Integumentary Integumentary: reports: Dryness - Neurological Neurological: reports: General weakness, Other (Tremor due to Parkinsons' disease). denies: Headache, Memory problems - Psychiatric Psychiatric: reports: Other (Canabasis used to help him sleep but no longer smokes it due to concern for coughing and known compression fractures leading to pain). denies: Depression ( Enjoys reading his scriptures daily.) - All Other Systems All Other Systems: reports: Reviewed and negative Physical Exam - Vital Signs Temperature: 36.6 C Pulse Rate: 84 O2 Saturation: 97 (on RA) Blood Pressure: 135/80 (left wrist) - Physical Exam General Appearance: positive: No acute distress, Alert, Other (Appears older than stated age, well groomed, thin) Eyes Bilateral: positive: Normal inspection, Other (+corrective lenses) ENT: positive: No signs of dehydration Neck: positive: Trachea midline Cardiovascular: positive: Regular rate & rhythm, No murmur, Other (Chestwall nontender to palpation and without reproduction of pain) Respiratory: positive: No respiratory distress, Breath sounds nml Abdomen: positive: Non-tender, Soft, Nml bowel sounds. negative: Distended Skin: positive: Dryness (to face, improved) Extremities: positive: No pedal edema, Other (+DJD changes to hands; Spine nontender to palpation--reports discomfort to left SI when pain occurs) Neurologic/Psychiatric: positive: Oriented x3, Mood/affect nml, Other (Intermittent action temor noted to BUE with left greater than right) Palliative Care - POLST Patient has POLST: Yes POLST Status: DNR, Comfort Measures Pain: Pain unchanged (to left lower back (SI area) and to left testicle--intermittent) - Palliative Care Discussion: Patient was reporting some intermittent nausea and right sided chest wall pain in the setting of utilization of Mobic 7.5 mg and therefore, suspicious of GERD versus gastritis. Will hold Mobic 7.5 mg at this time and start H2 heather, Pepcid 20 mg twice daily x2 weeks and then return to once daily dosing. Patient is presently taking tramadol 50 mg every 4 hours as needed. Discussed utilization of stronger pain medication such as hydrocodone/acetaminophen or oxycodone however, the patient declines. He has reservations due to family history of utilizing increased opioids. He presents with left SI discomfort that will radiate into the left groin versus left groin/testicular discomfort due to recoil and colon cancer. Recommendation to trial SI belt for support and comfort as a nonpharmacologic intervention and patient and spouse are amenable to trial this. Given the patient is no longer receiving home health therapy and has recurrent colon cancer reintroduced the role of hospice services for support and patient and spouse are amenable to transition to hospice services for more oversight as the patient wishes to avoid hospitalization remain in the comfort of his home. Impression and Recommendations - Palliative Care Impression: This is an unfortunate 71-year-old gentleman who has recurrent stage IV sigmoid colon cancer, Parkinson's disease, osteoarthritis, low back and left scrotal pain due to the SI discomfort, anorexia, insomnia now with possible GERD. No longer receiving home health therapy. Improvement with insomnia with mirtazapine 7.5 mg in the evening and mild improvement with appetite stimulation. Given possible GERD symptoms discontinue Mobic 7.5 mg and initiate Pepcid 20 mg twice daily x2 weeks then 20 mg daily and hospice to reevaluate resumption of Mobic 7.5 mg. Given patient has recurrent disease and goal remains on comfort and quality of life will transition to hospice services for oversight and support. Recommendations/Counseling Done: 1. Left lower back pain suspicious for SI joint and left groin pain. Continues on tramadol 50 mg every 4 hours as needed for pain. Patient does not wish to trial a different opioid therapy and has reservations regarding this given past family history with opioid therapy and feels that his pain is controlled at the present time. Is status post home health PT and OT recently. No longer utilizing walker for ambulation. Also has acetaminophen 500 mg every 4 hours as needed for pain not to exceed 3000 mg daily from all sources. Fall precautions. Discussed utilization of SI belt to utilize during the day to obtain [id number] and discussed usage and not to wear at bedtime with understanding verbalized. 2. GERD versus gastritis. Mild reports of nausea and sensitivity to citrus foods. Reports improvement of symptoms with belching. Discontinue Mobic and hospice to reevaluate resumption after trial of H2 heather with Pepcid 20 mg twice daily x2 weeks then once daily. Patient to monitor his symptoms and pain management. 3. Decreased oral intake. Encourage small frequent meals throughout the day. Continue to encourage high-protein foods. Continue mirtazapine 7.5 mg in the evening for appetite stimulation. 4. Left testicular discomfort. Possibly due to SI joint pain with radiation along the dermatome versus peritoneal lymphadenopathy causing referred pain due to recurrent stage IV colon cancer. To trial SI belt for support and if not effective may consider jockstrap for relief. 5. Recurrent stage IV sigmoid colon cancer. Patient has elected not to proceed with further chemotherapy. Wishes to focus on comfort measures and quality of life. Status post oncology on 12/02/2021 with no further follow-up scheduled. 6. Advanced care planning. Patient has POLST as DN AR with comfort measures. We introduced the role of hospice services today and given he does not wish to proceed with any type of interventions regarding his recurrent colon cancer and his goals are in alignment with hospice services with focus on quality of life and comfort measures referral to be placed for would be home hospice at the patient and spouse's request. Total time spent 50 minutes with greater than 50% of this time counseling and coordination of care with the patient and spouse; examination of the patient; review of palliative and hospice philosophy's and de-escalation of care; review of pain and symptom management and anticipatory guidance. Disclaimer: The chart note was formulated using voice recognition technology and unfortunately sound alike errors may occur.
== END 2022-02-13 10:41 | disposition home or self-care (01) ==
LOC: PC 10:40
PROVIDERS: ATTEND Nurse Practitioner Family
DX: Z51.5 Encounter for palliative care (principal); C18.7 Malignant neoplasm of sigmoid colon; R11.0 Nausea; R07.89 Other chest pain; M54.50 Low back pain, unspecified; N50.82 Scrotal pain; R63.0 Anorexia; Z79.899 Other long term (current) drug therapy; Z92.21 Personal history of antineoplastic chemotherapy; Z66 Do not resuscitate
CPT/HCPCS: 99349